=== PATIENT | male | born 1990 | race Two or more races ===

== ENCOUNTER 2024-02-11 08:01 | Outpatient (AMB) | payer OTHER, SELFPAY ==
--- OUTSIDE RECORDS SUMMARY | 2024-02-11 08:02 | XMS_ITS | Continuity of Care Document ---
Author Organization [facility] Address [address] [place] [address] Phone Care Team Providers Care Machine Maintenance Servicer Name Role Phone Katina Darnell Unavailable Unavailable Allergies, Adverse Reactions, Alerts Substance Reaction Status Criticality No Known Allergies Resolved No Inform ation Medications Medication Instructions Dosage Effective Dates (start - stop) Status Comments meloxicam 7.5 mg tablet take 1 tablet by oral route every day 7.5 MG - Active fluoxetine 20 mg tablet take 1 tablet by oral route every day in the morning 20 MG - Active Procedures Procedure Date OFFICE VISIT ESTAB PT 15 MIN OFFICE VISIT ESTAB PT 15 MIN Case Management OFFICE VISIT ESTAB PT 15 MIN OFFICE VISIT ESTAB PT 25 MIN Case Management Advance Directives Directive Yes / No Effective Date File Name No Information Encounters Encounter Description Practice Location Reason(s) For Visit Diagnoses Date Provider Providers Copied on Encounter [facility], [address], [id number] , tel:[phone] [facility] No Information [address] Mann Katina. [address], [place], [id number], [place]. tel:[phone] OFFICE VISIT ESTAB PT 15 MIN [facility], [address] [place], [id number] , tel:[phone] [facility] left LBP (chief complaint) Body mass index (BMI) 39.0-39.9, adultAcute low back pain, unspecified back pain laterality, with sciatica presence unspecified [address]ina. [address], [place], [address], [place]. tel: [phone] OFFICE VISIT ESTAB PT 15 MIN [facility], [address] [place], [place], [id number] , [place] tel:[phone] [facility] low back pain (chief complaint) Body mass index (BMI) 38.0-38.9, adultChronic low back pain with sciatica, sciatica laterality unspecified, unspecified back pain laterality [address]ina[address], [place], [id number], [place]. tel:[phone] [facility], [address], [id number] , [place] tel:[phone] [facility] Persons encountering health services in oth circumstances 8 Iron[address] Falcon. [address], [place], [id number], [place]. tel:[phone] OFFICE VISIT ESTAB PT 15 MIN [facility], [address] [place], [place], [id number] , [place] tel:[phone] [facility] back pain (chief complaint) Body mass index (BMI) 39.0-39.9, adultAcute low back pain, unspecified back pain laterality, with sciatica presence unspecified [address], [place], [id number], [place]. tel:[phone] OFFICE VISIT ESTAB PT 25 MIN [facility], [address] [place], [place], [address] , [place] tel:[phone] [facility] establish care (chief complaint) depression (chief complaint) memory loss (chief complaint) Body mass index (BMI) 39.0-39.9, adultEncounter for screening for other disorderAcute low back pain, unspecified back pain laterality, with sciatica presence unspecifiedDysthy miaMemory loss 8 [address]ina. [address], [place], [id number], [place]. tel:[phone] [facility], [address], [place], [place], [id number] , tel: [phone] [facility] No Information 8 Management Case. . Family History Family Member Type Diagnosis Age At Onset No Information Payers Payer name Insurance type Covered republican ID Yadira garland(s) [facility] Access CI [id number] Social History Type Description Quantity Date Captured Comments Alcohol Use Details Unknown Caffeine Use Details Unknown Tobacco Use Status No Information Smoking Status No Information Sex Male Chief Complaint And Reason For Visit No Information Reason For Referral Reason For Referral No Information Plan Of Treatment Date Type Action Status Goal H&P. Due on due Goal Td vaccine. Due on due Goal HIV screen. Due on due Goal Influenza vaccine. Due on due Goal Depression screening. Due on due Goal Tdap. Due on due Goal HIV screen. Due on due Goal Td vaccine. Due on due Goal H&P. Due on due Goal Tdap. Due on due Goal Influenza [...] Goal Influenza vaccine. Due on due Goal Td vaccine. Due on due Goal Tdap. Due on due Goal Dietary management education [...] wants handicap placard application completed. back pain (comments) pain radiat es down Rt leg. back pain Duration: 2 Year s. The [...] pain. says [place] is being seen in [place] & it is [place] long drive. Currently getting back injections which he thinks is helping. Affects movement sleep, lifestyle. depression There is no cont inuation of [...] tried counseling but it did not help. establish care The symptoms are reported as being mild. The symptoms occur constantly. He states the symptoms are chronic. says he moved here from [place] about 5 mos ago. LBP has had this for 3 years. says he hurt it at his job. Also had sx & this did not help him. goes to [facility] . Taking advil & tylenol right now. memory loss Severity level i s moderate. Pertinent negatives include agitation. Additional information: Pt reports memory loss which has been progressive X 1-2 years. Marianna has had depression at the time so he has not been clear when sx's started. 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 Pt advised he needs to do regular stretches, move. Massage for now, mobic 7.5mg bid. Will f/u w/ortho, pt will be referred to alternate ortho in [place] as W/C case is in [place]. Revisit in 6 weeks. Related to Acute low back pain, unspecified back pain laterality, with sciatica presence unspecified Giving encouragement to exercise Related to Body mass index (BMI) 39.0-39.9, adult Dietary management e ducation, guidance, and counseling [...] sciatica laterality unspecified, unspecified back pain laterality Giving encouragement to exercise Related to Body mass index (BMI) 38.0-38.9, adult Dietary management e ducation, guidance, and counseling Related to Body mass index (BMI) 38.0-38.9, adult Pt will sign a relea se for all past recordss today- wants to transfer his care/tx to [place] as it will be much more convenient. Will revisit in 1 month. Related to Acute low back pain, unspecified back pain laterality, with sciatica presence unspecified Giving encouragement to exercise Related to Body mass index (BMI) 39.0-39.9, adult Dietary management e ducation, guidance, and counseling Related to Body mass index (BMI) 39.0-39.9, adult Pt continues to f/u w/doctor in [place]- pt signing release for past records today. Related to Acute low back pain, unspecified back pain laterality, with sciatica presence unspecified I will refer to neuro for evalua tion Related to Memory loss Try prozac 20mg jada y #30-1R. pt defres counseling. revisit in 4 weeks. Related to Dysthymia Giving encouragement to exercise Related to Body mass index (BMI) 39.0-39.9, adult Dietary management e ducation, guidance, and counseling Related to Body mass index (BMI) 39.0-39.9, adult Mental health care education Rel ated to Encounter for screening for other disorder Assessments Type Assessment Date No Information Patient Care Teams Name Effective Dates (start - stop) Status Members No Information
--- NOTE | 2024-02-11 10:21 | MHC.OFFVISWM ---
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 BMI 46.1 Barley Steeper Required: Yes Barley Steeper Services: Barley Steeper Present Information Interpreted: clinical only Allergies No Known Allergies Allergy (Verified 02/11/24 13:02) Medication List - Last Reconciled 02/11/24 by Reg Murcia MD lisinopril 2.5 mg PO DAILY naproxen 500 mg PO BID phentermine 37.5 mg PO QAM semaglutide (weight loss) (Wegovy) mg subcut HPI HPI 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 BMI 46.1: Details: Start time: 1pm, End time: 1.38pm and 15 min to review his records ?I spent 33 minutes speaking with the patient on the phone plus an additional 20 minutes reviewing and updating records for a total of 53 minutes HPI Comments Details: Previous weight loss efforts Wakes up: 3am, Sleeps: 10pm Breakfast: skips Lunch: 12pm (tacos) Dinner: 7pm (beans and tortillas, eggs) Snacks: none Exercise: Has Elliptical Fluids: Coffee: 1 cup/day (cream and sugar), tea: none, soda: regular Pepsi (1 can per day), juice: no, ETOH: none PFSH Medical History (Updated 02/11/24 @ 10:23 by Reg Murcia MD) DJD (degenerative joint disease) Hypertension Morbid obesity Surgical History History of back surgery Family History (Updated 01/25/24 @ 09:29 by Cinthya Lopez CMA) Mother Cancer Father Heart problem Kidney problem Daughter No problems noted. Daughter No problems noted. Daughter No problems noted. Social History (Updated 01/25/24 @ 09:29 by Cinthya Lopez CMA) Alcohol intake: never Patient Tobacco Use Status: Never used Tobacco Physical Exam Vital Signs: BMI result Body Mass Index 46.0 Telehealth Telehealth Telehealth Platform: Telephone Location of provider rendering services: practice address Location of patient: address on file Patient Identification confirmed using: Name, : Yes Telehealth method: voice only Patient verbally consented to treatment: Yes Patient verbally consented to billing insurance company: Yes Patient informed of any privacy concerns related to visit: Yes Minutes spent on Phone/Video with Pt.: 53 Assessment & Plan Assessment & Plan (1) Morbid obesity: Code(s): E66.01 - Morbid (severe) obesity due to excess calories Category: Medical Plan: 1.?Plan for lap sleeve gastrectomy. If diaphragmatic or ventral hernias are present at time of surgery, these will be repaired laparoscopically as well. Risks and complications include possible conversion to an open procedure, anastomotic leak, bleeding requiring transfusion, small bowel obstruction, , DVT and pulmonary embolism, cardiac, or pulmonary complications, as shelter complications such as anastomotic ulcer, insufficient weight loss and vitamin deficiencies. I emphasized the importance of close follow-up, adherence to instructions and good communication. 2. Please buy a body composition scale and start sharing measurements with me 3. Do aerobic exercise (outside walking, or treadmill, or elliptical or stationary bike) and do 150 minutes of aerobic exercise per week, or 22 minutes per day. 4. Continue the Wegovy and the Phentermine when you get your body composition scale once a week. Use a calorie-counting jacobo to track your daily calories to create a calorie deficit with a target of consuming 9483-8647 calories per day. We discussed the potential side effects of Wegovy such as nausea, vomiting, abdominal pain, diarrhea and constipation and you will need to contact me if any of these symptoms occur or for any other new symptom you may experience ?5. Goal is to lose at least 1.5-2lbs per week ?6. Goal to lose 10% of your weight before surgery, which is about 29lbs. Ultimate weight goal: 265lbs before surgery Orders: Orders H Pylori Breath Test Today E66.01 - Morbid (severe) obesity due to excess calories Zinc Today E66.01 - Morbid (severe) obesity due to excess calories C Reactive Protein Today E66.01 - Morbid (severe) obesity due to excess calories Vitamin A Today E66.01 - Morbid (severe) obesity due to excess calories Vitamin D 25-OH Total Today E66.01 - Morbid (severe) obesity due to excess calories US abdomen comp w elastography Today E66.01 - Morbid (severe) obesity due to excess calories XR chest 2V Today E66.01 - Morbid (severe) obesity due to excess calories ECG 12 lead EKG Today E66.01 - Morbid (severe) obesity due to excess calories Insulin Today E66.01 - Morbid (severe) obesity due to excess calories Hemoglobin A1c Today E66.01 - Morbid (severe) obesity due to excess calories Complete Blood Count Auto Diff Today E66.01 - Morbid (severe) obesity due to excess calories Lipid Panel Today E66.01 - Morbid (severe) obesity due to excess calories IRON PROFILE Today E66.01 - Morbid (severe) obesity due to excess calories Comprehensive Met. Panel Today E66.01 - Morbid (severe) obesity due to excess calories Vitamin B12 and Folate Today E66.01 - Morbid (severe) obesity due to excess calories Vitamin B1 Today E66.01 - Morbid (severe) obesity due to excess calories TSH reflex Free T4 Today E66.01 - Morbid (severe) obesity due to excess calories Ferritin Today E66.01 - Morbid (severe) obesity due to excess calories FL upper GI w air Today E66.01 - Morbid (severe) obesity due to excess calories Referrals Nutrition/Dietitian Referral E66.01 - Morbid (severe) obesity due to excess calories Behavioral Health Referral E66.01 - Morbid (severe) obesity due to excess calories
[2024-02-11 10:22] VITALS: BMI 46.0
== END 2024-02-11 13:39 | disposition home or self-care (01) ==
LOC: HO.HBS 08:01
PROVIDERS: Visit Provider Surgery
DX: E66.813 Obesity, class 3 (principal); Z68.42 Body mass index [BMI] 45.0-49.9, adult
CPT/HCPCS: 99443

== ENCOUNTER → 2024-02-11 08:01 | Outpatient (BNVA) | payer OTHER, SELFPAY | PROVIDERS: Visit Provider Surgery ==

== ENCOUNTER 2024-03-07 09:13 | Outpatient (REF) | payer OTHER, SELFPAY ==
--- NOTE | ~2024-03-07 | US_ITS ---
EXAMINATION: US ABDOMEN COMPLETE WITH LIVER ELASTOGRAPHY HISTORY: E66.01 - Morbid (severe) obesity due to excess calories TECHNIQUE: Real-time grayscale ultrasound imaging of the abdomen was performed and images were reviewed. COMPARISON: There are no prior studies for comparison. FINDINGS: Liver: The liver is normal in size, but demonstrates increased echotexture, consistent with steatosis. No focal mass or intrahepatic biliary ductal dilatation is identified. There is normal hepatopedal flow in the portal vein. Ultrasound elastography of the liver was performed with 10 separate measurements of the liver parenchyma with the patient in the supine position. Measurements were obtained approximately 2 cm below Jana's capsule and perpendicular to the capsule. Images are of satisfactory quality. The median shear wave velocity is 1.23 m/s. The interquartile range/median (IQR/median) is 0.29. Gallbladder and biliary tree: The gallbladder is unremarkable, without evidence of calculi, wall thickening, or pericholecystic fluid. There is no sonographic Dickerson sign. The common bile duct is normal in caliber measuring 4 mm. Kidneys: The right kidney measures 12.5 cm in length. The left kidney measures 13.2 cm in length. There is mild hydronephrosis. No mass or calculi are identified. Pancreas: The pancreatic head, neck, and body are unremarkable. The pancreatic tail is obscured by bowel gas. Spleen: The spleen is normal in size and contour, measuring 10.3 cm in length. Abdominal aorta and inferior vena cava: The visualized portions of the abdominal aorta and inferior vena cava are normal in caliber. There is no free fluid in the abdomen. US/US abdomen comp w elastography IMPRESSION: 1. Hepatic steatosis. The median shear wave velocity is 1.23 m/s, corresponding to a median liver stiffness of 4.6 kPa. The IQR/median value is 0.23. This is unreliable as the value is > 0.15 (15%). Findings are indicative of a normal elastography value with a low likelihood of severe fibrosis or cirrhosis. 2. Mild bilateral hydronephrosis of uncertain significance. Follow-up is suggested. REFERENCE: Society of Radiologists in Ultrasound Liver Stiffness Thresholds (2019): LIVER STIFFNESS THRESHOLDS: *Shear wave velocity less than 1.3 m/s (Liver Stiffness equal or less than 5 kPa): High probability of being normal. *Shear wave velocity less than 1.7 m/s (Liver Stiffness less than 9 kPa): In the absence of other known clinical signs, rules out compensated advanced chronic liver disease. *Shear wave velocity between 1.7-2.1 m/s (Liver Stiffness 9-13 kPa): Suggestive of compensated advanced chronic liver disease but need further test for confirmation. *Shear wave velocity between 2.1-2.4 m/s (Liver Stiffness 13-17 kPa): Rules in compensated advanced chronic liver disease. *Shear wave velocity greater than 2.4 m/s (Liver Stiffness over 17 kPa): Suggestive of clinically significant portal hypertension. QUALITY OF DATA SET: *IQR/Median value equal or less than 0.15 implies a quality data set. *IQR/Median value over 0.15 implies a poor quality data set. SIGNIFICANT CHANGE FROM PRIOR EXAM: Significant change if liver stiffness measurement is 10% or greater from prior exam. OTHER CONSIDERATIONS: The stage of liver fibrosis may be overestimated in the setting of acute hepatitis, liver inflammation, elevated liver function tests, hepatic vascular congestion, obstructive cholestasis, non-fasting state, and infiltrative diseases such as amyloidosis and lymphoma. In some patients with NAFLD, the liver stiffness thresholds for compensated advanced chronic liver disease may be lower. In causes other than viral hepatitis and NAFLD, liver stiffness thresholds are not well established. Electronically signed by: James Serna MD 03/09/2024 08:29 AM [facility]
--- OUTSIDE RECORDS SUMMARY | 2024-03-07 09:30 | XMS_ITS | Continuity of Care Document ---
Author Organization [facility] Address [address] [place] [address] Phone Care Team Providers Care Plant Custodian Name Role Phone Katina Darnell Unavailable Unavailable [...] Providers Copied on Encounter [facility], [address] [place], [id number] , tel:[phone] [place] [employer] No Information 8 Mann Katina. [address] [place], [place], [id number], [place]. tel:[phone] OFFICE VISIT ESTAB PT 15 MIN [facility], [address] [place], [id number] , tel:[phone] [employer] left LBP (chief complaint) Body mass index (BMI) 39.0-39.9, adultAcute low back pain, unspecified back pain laterality, with sciatica presence unspecified 8 Mann Katina. [address] [place], [place], [id number], [place]. tel:[phone] OFFICE VISIT ESTAB PT 15 MIN [facility], [address] [place], [place], [address] , [place] tel:[phone] [facility] low back pain (chief complaint) Body mass index (BMI) 38.0-38.9, adultChronic low back pain with sciatica, sciatica laterality unspecified, unspecified back pain laterality 8 Mann Ktaina. [address] [place], [place], [id number], [place]. tel:[phone] [facility], [address] [place], [address] , [place] tel:[phone] [facility] Persons encountering health services in oth circumstances 8 Ironadilia Falcon. [address] [place], [place], [address], [place]. tel:[phone] OFFICE VISIT ESTAB PT 15 MIN [facility], [address] [place], [place], [id number] , [place] tel:+ [phone] [facility] back pain (chief complaint) Body mass index (BMI) 39.0-39.9, adultAcute low back pain, unspecified back pain laterality, with sciatica presence unspecified 8 Mann Katina. [address] [place], [place], [address], [place]. tel:[phone] OFFICE VISIT ESTAB PT 25 MIN [facility], [address] [place], [place], [address] , [place] tel:+ [phone] [facility] establish care (chief complaint) depression (chief complaint) memory loss (chief complaint) Body mass index (BMI) 39.0-39.9, adultEncounter for screening for other disorderAcute low back pain, unspecified back pain laterality, with sciatica presence unspecifiedDysthy miaMemory loss 8 Mann Katina. [address], [place], [id number], [place]. tel:[phone] [facility], [address], [place], [place], [id number] , tel: [phone] [facility] No Information 8 Management Case. . Family History Family Member Type Diagnosis Age At Onset No Information Payers Payer name Insurance type Covered republican ID Yadira garland(s) [facility] Access CI [id number] Social History Type Description Quantity Date Captured [...] pain. says he is being seen in [place] & it is a long drive. Currently getting back injections which he thinks is helping. Affects movement sleep, lifestyle. memory loss Severity level i s moderate. Pertinent negatives include agitation. Additional information: Pt reports memory loss which has been progressive X 1-2 years. Marianna has had depression at the time so he has not been clear when sx's started. establish care The symptoms are reported as being mild. The symptoms occur constantly. He states the symptoms are chronic. says he moved here from [place] about 5 mos ago. LBP has had this for 3 years. says he hurt it at his job. Also had sx & this did not help him. goes to [facility] . Taking advil & tylenol right [...] tried counseling but it did not help. 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 Pt advised he needs to do regular stretches, move. Massage for now, mobic 7.5mg bid. Will f/u w/ortho, pt will be referred to alternate ortho in [place] as W[place]C case is in [place]. Revisit in 6 weeks. Related to Acute [...] today- wants to transfer his care/tx to [place] as it will be much more convenient. Will revisit in 1 month. Related to Acute low back pain, unspecified back pain laterality, with sciatica presence unspecified Dietary management e ducation, guidance, and counseling Related to Body mass index (BMI) 39.0-39.9, adult Giving encouragement to exercise Related to Body mass index (BMI) 39.0-39.9, adult Pt continues to f/u w/doctor in [place]- pt signing release for past records today. [...]
== END 2024-03-07 09:14 | disposition home or self-care (01) ==
LOC: HO.US 09:13
PROVIDERS: Visit Provider Surgery
DX: E66.01 Morbid (severe) obesity due to excess calories (principal)
CPT/HCPCS: 76700; 76981

== ENCOUNTER → 2024-03-07 09:16 | Outpatient (BNV) | payer OTHER, SELFPAY | PROVIDERS: Visit Provider Radiology Diagnostic Radiology | DX: K76.0 Fatty (change of) liver, not elsewhere classified (principal) | CPT/HCPCS: 76700 ==

== ENCOUNTER 2024-03-14 10:21 | Outpatient (REF) | payer OTHER, SELFPAY ==
--- NOTE | ~2024-03-14 | XR_ITS ---
CLINICAL HISTORY: E66.01 - Morbid (severe) obesity due to excess calories 2 view chest x-ray Comparison: None Findings: No consolidation or effusion. Heart size is normal. No acute fracture. IMPRESSION: 1. No acute findings. This document has been electronically signed by: Jmaes Meadows MD on 03/15/2024 04:43:47
--- NOTE | 2024-03-14 10:31 | ECG_ITS ---
Test Reason : OBS Blood Pressure : */* mmHG Vent. Rate : 72 BPM Atrial Rate : 72 BPM P-R Int : 160 ms QRS Dur : 92 ms QT Int : 398 ms P-R-T Axes : 53 11 16 degrees QTcB Int : 435 ms Normal sinus rhythm Inferior infarct , age undetermined Abnormal ECG No previous ECGs available Referred By: Reg Murcia Electronically Signed By: Marcelino Lerma
[2024-03-14 10:48] LABS: MANUAL DIFF FLAG NO
[2024-03-14 10:51] LABS: Basophils Absolute Auto 0.1 X10*3/uL (0.0-0.2); Basophils Percent Auto 0.8 % (0-2); Eosinophils Absolute Auto 0.2 X10*3/uL (0.0-0.4); Hematocrit 51.5 % (42.0-52.0); Hemoglobin 17.5 g/dl (14.0-18.0); Imm Gran Abs Auto 0.04 X10*3/uL (0.00-0.03); Imm Gran Pct Auto 0.4 % (0.0-0.4); Lymphocytes Absolute Auto 2.8 X10*3/uL (1.2-4.9); Lymphocytes Percent Auto 30.9 % (20-40); Mean Corpuscular Hemoglobin 29.1 pg (27.0-33.0); Mean Corpuscular Volume 85.7 fL (80.0-98.0); Mean Platelet Volume 9.2 fL (9.4-12.4); Monocytes Absolute Auto 0.8 X10*3/uL (0.1-1.2); Monocytes Percent Auto 8.9 % (2-11); Neutrophils Absolute Auto 5.1 x10*3/uL (2.0-8.3); Platelet Count 296 X10*3/uL (160-400); Red Blood Count 6.01 X10*6/uL (4.60-5.80); Red Cell Distribution Width 13.2 % (11.0-16.0)
[2024-03-14 11:15] LABS: Estimated Average Glucose 123 mg/dL; Hemoglobin A1C 179.9912 umol/L; Hemoglobin A1c % 5.9 % (<6.0)
[2024-03-14 11:33] LABS: Alanine Aminotransferase 93 U/L (0-40); Alkaline Phosphatase 78 U/L (39-117); Anion Gap 6 (12-20); Aspartate Amino Transferase 44 U/L (5-37); Bilirubin Total 0.3 mg/dL (0.0-1.0); Blood Urea Nitrogen 12 mg/dL (9-16); C Reactive Protein 0.25 mg/dL (< or = 0.50); Calcium 9.4 mg/dL (8.4-10.2); Carbon Dioxide 33 mmol/L (22-29); Chloride 107 mmol/L (96-108); Cholesterol 142 mg/dL (<200); Estimated Glomerular Filt Rate > 60; Glucose Random 88 mg/dL (60-115); HDL Cholesterol 44 mg/dL (>40); LDL Cholesterol Calculated 85 mg/dL (<100); Potassium 4.3 mmol/L (3.3-5.1); Sodium 142 mmol/L (135-145); Total Protein 7.4 g/dL (6.5-8.0); Triglycerides 69 mg/dL (<150); Unsaturated Iron Binding 226 ug/dL
[2024-03-14 11:42] LABS: Iron 82 mcg/dL (45-160); Percent Iron Saturation 27 % (15-50); Total Iron Binding Capacity 308 mcg/dL (228-428)
[2024-03-14 11:54] LABS: Ferritin 214 ng/mL (20-250); TSH reflex Free T4 1.75 uIU/mL (0.32-4.0)
[2024-03-14 11:55] LABS: Insulin 53 uU/mL (2-29)
[2024-03-14 11:58] LABS: Folate 7.4 ng/mL (> or = 4.0); Vitamin B12 464 pg/mL (200-900)
--- OUTSIDE RECORDS SUMMARY | 2024-03-14 12:03 | XMS_ITS | Continuity of Care Document ---
Author Organization [facility] Address [address] [place] [address] Phone Care Team Providers Care Application Processor Name Role Phone Katina Darnell Unavailable Unavailable [...] Providers Copied on Encounter [facility], [address], [place], [id number] , tel:[phone] [place] [employer] No Information 8 Mann Katina. [address] [place], [place], [id number], [place]. tel:[phone] OFFICE VISIT ESTAB PT 15 MIN [facility], [address], [place], [address] , tel:[phone] [employer] left LBP (chief complaint) Body mass index (BMI) 39.0-39.9, adultAcute low back pain, unspecified back pain laterality, with sciatica presence unspecified 8 Mann Katina. [address] [place], [place], [address], [place]. tel:[phone] OFFICE VISIT ESTAB PT 15 MIN [facility], [address] [place], [place], [id number] , [place] tel:[phone] [facility] low back pain (chief complaint) Body mass index (BMI) 38.0-38.9, adultChronic low back pain with sciatica, sciatica laterality unspecified, unspecified back pain laterality 8 Mann Katina. [address] [place], [place], [id number], [place]. tel:[phone] [facility], [address], [address] , [place] tel:+ [phone] [facility] Persons encountering health services in oth circumstances 8 Ironadilia Falcon. [address] [place], [place], [address], [place]. tel:[phone] OFFICE VISIT ESTAB PT 15 MIN [facility], [address] [place], [place], [address] , [place] tel:[phone] [facility] back pain (chief complaint) Body mass index (BMI) 39.0-39.9, adultAcute low back pain, unspecified back pain laterality, with sciatica presence unspecified 8 Mann Katina. [address] [place], [place], [address], [place]. tel:[phone] OFFICE VISIT ESTAB PT 25 MIN [facility], [address] [place], [place], [address] , [place] tel:+ [phone] [facility] establish care (chief complaint) depression (chief complaint) memory loss (chief complaint) Body mass index (BMI) 39.0-39.9, adultEncounter for screening for other disorderAcute low back pain, unspecified back pain laterality, with sciatica presence unspecifiedDysthy miaMemory loss 8 Mann Katina. [address] [place], [place], [address], [place]. tel:[phone] [facility], [address], [place], [place], [address] , tel: [phone] [facility] No Information 8 Management Case. . Family History Family Member Type Diagnosis Age At Onset No Information Payers Payer name Insurance type Covered constitution party ID Yadira garland(s) [facility] Access CI [id number] Social History Type Description Quantity Date Captured [...] pain. says he is being seen in [place] & it is a long drive. Currently [...] this did not help him. goes to [facility] . Taking advil & tylenol right [...] today- wants to transfer his care/tx to [place] as it will be much more convenient. Will revisit in 1 month. Related to Acute low back pain, unspecified back pain laterality, with sciatica presence unspecified Dietary management e ducation, guidance, and counseling Related to Body mass index (BMI) 39.0-39.9, adult Giving encouragement to exercise Related to Body mass index (BMI) 39.0-39.9, adult Pt continues to f/u w/doctor in [place]- pt signing release for past records today. [...]
[2024-03-17 12:59] LABS: Zinc 64 mcg/dL (60-130)
[2024-03-18 02:54] LABS: Vitamin A 36 mcg/dL (38-98)
[2024-03-18 12:48] LABS: Vitamin B1 8 nmol/L (8-30)
== END 2024-03-14 10:22 | disposition home or self-care (01) ==
LOC: HO.LAB 10:21
PROVIDERS: PCP Internal Medicine; Visit Provider Surgery
DX: E66.01 Morbid (severe) obesity due to excess calories (principal); Z13.1 Encounter for screening for diabetes mellitus
CPT/HCPCS: 36415; 71046; 80053; 80061; 82306; 82607; 82728; 82746; 83036; 83525; 83540; 84425; 84443; 84590; 84630; 85025; 86140; 93005

== ENCOUNTER → 2024-03-14 10:31 | Outpatient (BNV) | payer OTHER, SELFPAY | PROVIDERS: PCP Internal Medicine; Visit Provider Internal Medicine Cardiovascular Disease | DX: R94.31 Abnormal electrocardiogram [ECG] [EKG] (principal) | CPT/HCPCS: 93010 ==

== ENCOUNTER → 2024-03-14 10:53 | Outpatient (BNV) | payer OTHER, SELFPAY | PROVIDERS: PCP Internal Medicine; Visit Provider Radiology Diagnostic Radiology | DX: E66.01 Morbid (severe) obesity due to excess calories (principal) | CPT/HCPCS: 71046 ==

== ENCOUNTER 2024-03-15 11:10 | Outpatient (AMB) | payer OTHER, SELFPAY ==
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
== END 2024-03-15 13:51 | disposition home or self-care (01) ==
LOC: HO.HBST 11:10
PROVIDERS: PCP Internal Medicine; Visit Provider Counselor Mental Health
DX: F43.22 Adjustment disorder with anxiety (principal)
CPT/HCPCS: 90837

== ENCOUNTER 2024-04-05 11:14 | Outpatient (AMB) | payer OTHER, SELFPAY ==
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
== END 2024-04-05 11:28 | disposition home or self-care (01) ==
LOC: HO.HBST 11:14
PROVIDERS: PCP Internal Medicine; Visit Provider Counselor Mental Health
DX: F43.22 Adjustment disorder with anxiety (principal)
CPT/HCPCS: 90837

== ENCOUNTER → 2024-04-11 08:09 | Outpatient (REF) | payer OTHER, SELFPAY | LOC: HO.CARD 08:09 | PROVIDERS: PCP Internal Medicine; Visit Provider Surgery | DX: R94.31 Abnormal electrocardiogram [ECG] [EKG] (principal) | CPT/HCPCS: 93017; 93306; Q9957 ==

== ENCOUNTER → 2024-04-11 08:12 | Outpatient (BNV) | payer OTHER, SELFPAY | PROVIDERS: PCP Internal Medicine | DX: R94.31 Abnormal electrocardiogram [ECG] [EKG] (principal); R06.02 Shortness of breath | CPT/HCPCS: 93016; 93018; 93320; 93325; 93350; 93352 ==

== ENCOUNTER → 2024-04-24 09:22 | Outpatient (AMB) | payer OTHER, SELFPAY ==
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
--- OUTSIDE RECORDS SUMMARY | 2024-04-24 10:02 | XMS_ITS | Continuity of Care Document ---
Author Organization [facility] Address [address] [place] [address] Phone Care Team Providers Care Pipe Turner Name Role Phone Katina Darnell Unavailable Unavailable [...] Providers Copied on Encounter [facility], [address], [place], [id number] , tel:[phone] [facility] [email or web address] No Information 8 Mann Katina. [address] [place], [place], [id number], [place]. tel:[phone] OFFICE VISIT ESTAB PT 15 MIN [facility], [address], [place], [id number] , tel:[phone] [employer] left LBP (chief complaint) Body mass index (BMI) 39.0-39.9, adultAcute low back pain, unspecified back pain laterality, with sciatica presence unspecified 8 Mann Katina. [address] [place], [place], [id number], [place]. tel:[phone] OFFICE VISIT ESTAB PT 15 MIN [facility], [address] [place], [place], [id number] , [place] tel:+ [phone] [facility] low back pain (chief complaint) Body mass index (BMI) 38.0-38.9, adultChronic low back pain with sciatica, sciatica laterality unspecified, unspecified back pain laterality 8 Mann Katina. [address] [place], [place], [id number], [place]. tel:[phone] [facility], [address], [id number] , [place] tel:+ [phone] [facility] Persons encountering health services in oth circumstances 8 Ironadilia Falcon. [address] [place], [place], [id number], [place]. tel:[phone] OFFICE VISIT ESTAB PT 15 MIN [facility], [address] [place], [place], [id number] , [place] tel:+ [phone] [facility] back pain (chief complaint) Body mass index (BMI) 39.0-39.9, adultAcute low back pain, unspecified back pain laterality, with sciatica presence unspecified 8 Mann Katina. [address] [place], [place], [id number], [place]. tel:[phone] OFFICE VISIT ESTAB PT 25 MIN [facility], [address] [place], [place], [id number] , [place] tel:+ [phone] [facility] establish care (chief complaint) depression (chief complaint) memory loss (chief complaint) Body mass index (BMI) 39.0-39.9, adultEncounter for screening for other disorderAcute low back pain, unspecified back pain laterality, with sciatica presence unspecifiedDysthy miaMemory loss 8 Mann Katina. [address] [place], [place], [id number], [place]. tel:[phone] [facility], [address], [place], [place], [id number] , tel: [phone] [facility] No Information 8 Management Case. . Family History Family Member Type Diagnosis Age At Onset No Information Payers Payer name Insurance type Covered green party ID Yadira garland(s) [facility] Access CI [id number] Social History Type Description Quantity Date Captured [...] pain. says he is being seen in [place] & it is a long drive. Currently [...] are chronic. says he moved here from [place] about 5 mos ago. LBP has had this for 3 years. says he hurt it at his job. Also had sx & this did not help him. goes [facility] . Taking advil & tylenol [...] will be referred to alternate ortho in [place] as W[place] case is in [place]. Revisit in 6 weeks. Related to Acute [...] today- wants to transfer his care/tx to [place] as it will be much more convenient. Will revisit in 1 month. Related to Acute low back pain, unspecified back pain laterality, with sciatica presence unspecified Dietary management e ducation, guidance, and counseling Related to Body mass index (BMI) 39.0-39.9, adult Giving encouragement to exercise Related to Body mass index (BMI) 39.0-39.9, adult Pt continues to f/u w/doctor in [place]- pt signing release for past records today. [...]
--- OUTSIDE RECORDS SUMMARY | 2024-04-24 10:02 | XMS_ITS | Clinical Summary ---
Author Organization [facility] [email or web address] Address [address] [place] [address] Care Team Providers Care Material Crew Supervisor Name Role Phone Unavailable Primary Care Provider Unavailabl e Social History Tobacco Use Types Packs/Day Years Used Date Smoking Tobacco: Never Assessed Sex and Gender Information Value Date Recorded Sex Assigned at Not on file Legal Sex Male 6:51 PM EDT Gender Identity Not on file Sexual Orientation Not on file Last Filed Vital Signs Vital Sign Reading Time Taken Comments Blood Pressure - - Pulse 86 11/07/2020 11:26 AM EDT Temperature 36.7 ??C (98 ??F) 11/07/2020 11:26 AM EDT Respiratory Rate - - Oxygen Saturation 97% 11/07/2020 11:26 AM EDT Inhaled Oxygen Concentration - - Weight - - Height - - Body Mass Index - - Plan of Treatment Health Maintenance Due Date Last Done Comments Depression: Screening Annual ly using PHQ-2/9 in Adults 18 yrs or above (or HM Modifier)([facility]) 2006 Hepatitis C Virus Infection in Adolescents and Adults: Screening (or Modifier) ([facility]) 2006 [facility] Screening Reminder: Jeny rodriguez for all adults ([facility]) 2006 Tobacco Smoking Cessation: i n Adults excluding Women: Behavioral and Pharmacotherapy Interventions ([facility]) 2006 Lipid Screening: Once for Me n aged 20 to 35 yrs ([facility]) 2008 Flu Vaccination: Yearly for ages 18mos through 64 years (or Modifier)([facility]) 09/30/2023 COVID-19 Vaccine Screening: Initial Series and Booster Status ([facility]) (2023- season) 2023 Lipid Screening: Every 5 yrs for Men aged 35+ (or HM Modifier) ([facility]) 2024 DTaP/Tdap/Td Vaccines ([facility]) (2 - Td or Tdap) 12/10/2024 12/10/2014 Zoster/Shingles Vaccine Seri es Screening: Adults aged 18+ yrs (or HM Modifiers)([facility]) (1 of 2) 2038 Pneumococcal Vaccination Scr eening: Pts 0-19 & 19-64 yrs of age ([facility] ) Aged Out No longer eligible b ased on patient's age to complete this topic Medical Devices Not on file Insurance MEDICARE
--- OUTSIDE RECORDS SUMMARY | 2024-04-24 10:02 | XMS_ITS | Data Portability ---
Author Organization [employer] Address [address] [place] [address] Care Team Providers Care Realtime Captioner Name Role Phone HIM [facility] OTHER Assessment Encounter Date Assessment Date Assessment LastModified by Organization Details LastModified Time 01/07/2024 01/07/2024 I provided real -time medical direction via phone for this encounter and was available for additional phone-based assistance as needed. I have reviewed and agree with the Assessment and Plan as documented by the Wastewater Treatment Supervisor. Patient given the opportunity to ask questions. Our service contacted for an assessment of: Hemoptysis and chest pain As per above, patient with a 3 to four-week history of hemoptysis and a more recent complaint of chest pain. Patient with frequent travel to [place]. Currently is homeless. He is awaiting for a property that he has to clear renters before moving in. He does have 3 children who are with him currently in the back of his car. The visit took place at a [facility]. The patient did not call for the visit and did not want multiple cut off saw operator to evaluate him. He states that approximately 3 weeks ago he was seen in urgent care and had a chest x-ray which was negative. He declines and denies being tested for TB. He states he has had no workup other than for a high cholesterol reading in the past month or so. Patient denies shortness of breath and dyspnea on exertion. Per multiple cut off saw operator on the scene, vital signs show hypertension and is otherwise in no distress. He declines emergency room visit or evaluation. He will likely go and have TB testing at some other point in time. He denies any night sweats or chills. He is trying to lose weight and therefore any weight loss he is experiencing he deems to be intentional. Impression: Hemoptysis and chest pain Plan: Differential diagnosis is broad and beyond the scope of this practice to evaluate in the current setting. We encouraged the patient to follow up in the emergency department however given factors of homelessness and currently having his 3 young daughters in the back seat of his car precludes him from obtaining optimal medical care. We did not call 911 for refusal given the patient factors involved. It is understandable why the patient would not want to go to the emergency department and the hemoptysis appears to be, per his description, not massive in quantity. Given his travel and homeless status he is at risk for tuberculosis. He is also at risk for pulmonary emboli from his relatively sedentary state and obesity. He is not hypoxic and not tachycardic and therefore burden of thromboses would be small. He has no systemic signs of tuberculosis and denies a cough. We will need to follow-up with his care team regarding best treatment for Elier given his circumstances and patient factors. Patient is agreeing to a reasonable plan that will allow him to take care of his family. Allergies: Reviewed PCP f/u: We discussed the diagnostic uncertainty of home visits and the risk associated with this. In this case, the patient and I felt this to be an acceptable and reasonable amount of risk given the benefit of avoiding an ED visit. We discussed the need to seek care urgently/emergent ly in the setting of any new or worsening serious symptoms, particularly fever chills [email or web address] Not available 01/07/2024 21:02:28 Plan of Treatment Reminders Order Date Submit Date Provider Last Modified By Organization Details Last Modified Time Details Appointments None record ed. Lab None record ed. Referral None record ed. Procedures None record ed. Surgeries None record ed. Imaging None record ed. Medication Orders None record ed. Patient TargetsNo targets recorded. Patient InstructionsNo instructions recorded. Reason for Referral None Reported. Medical Equipment None Reported. Allergies No known drug allergies Medications Name Sig Start Date Stop Date Status Note LastModified by Organization Details LastModified Time ketoconazole 2 % shampoo active Not Available Not Available Not Available fluconazole 200 mg tablet TAKE 1 TABLET BY MOUTH ONCE DAILY FOR 42 DAYS active Not Available Not Available No t Available cephalexin 500 mg capsule TAKE 1 CAPSULE BY MOUTH EVERY 8 HOURS FOR 7 DAYS active Not Available Not Available No t Available sertraline 25 mg tablet active Not Available Not Available No t Available mupirocin 2 % topical ointment APPLY OINTMENT TOPICALLY TWICE DAILY FOR 2 WEEKS active Not Available Not Available No t Available diazepam 10 mg tablet TAKE 1 TABLET BY MOUTH ONCE DAILY FOR 3 DAYS active Not Available Not Available No t Available lisinopril 2.5 mg tablet active Not Available Not Availabl e Not Available phentermine 37.5 mg capsule TAKE 1 CAPSULE BY MOUTH ONCE DAILY active Not Available Not Available No t Available naproxen 500 mg tablet active Not Available Not Available No t Available mometasone 0.1 % topical cream APPLY CREAM TOPICALLY TWICE DAILY FOR 2 WEEKS active Not Available Not Available No t Available Vitamin D3 25 mcg (1,000 unit) capsule active Not Available Not Availabl e Not Available cyclobenzapri ne 5 mg tablet TAKE 1 TABLET BY MOUTH THREE TIMES DAILY active Not Available Not Available No t Available Wegovy 0.25 mg/0.5 mL subcutaneous pen injector active Not Available Not Available Not Available Wegovy 0.5 mg/0.5 mL subcutaneous pen injector active Not Available Not Available Not Available Vitals Date Recorded Heart rate Oxygen saturation Oxygen saturation in Arterial blood by Pulse oximetry Respiratory rate Body weight Body height Body temperature Systolic blood pressure Diastolic blood pressure Provider Name and Address Organization Details Last Updated DateTime 4 89 /min 99 % 99 % 20 /min 570364. 6 g 170.18 cm 98.3 [degF] 184 mm[Hg] 136 mm[Hg] Not Available [facility] - production 4 16:43:51 Social History None recorded. Functional Status None recorded. Mental Status None recorded. Family History Nothing Reported. Medical History No medical history recorded. Past Encounters Encounter ID Performer Location Encounter Start Date Encounter Closed Date Diagnosis/Indication Diagnosis SNOMED-CT Code Diagnosis ICD10 Code Diagnosis Note [id number] Dari Horn MD [facility] [address] [place] [id number] 01/07/2024 16:42:20 01/07/2024 21:40:20 Hemoptysis 31749754 R04.2 Chest pain 04476423 R07. 9 Health Concerns Section Related Observation LastModified by Organization Detai ls LastModified Time None Recorded Concern Status LastModified by Organization Details LastModified Time None Recorded Advance Directives Directive None Recorded Payers Encounter Date Sequence Insurance Name Policy Number Policy Donaldson Covered Member ID Donaldson Member ID Guarantor Name 01/07/[address] [facility] [place] [place] - DOS ON OR AFTER 2022 - DUAL ELIGIBLE - SENIOR LIVING OPTIONS AND ONE CARE (MEDICARE REPLACEMENT/ADV ANTAGE - HMO) Elier Kelley [id number] Elier Kelley Notes Date Note Type Note Provider Name and Address Organization Details Recorded Time 01/07/2024 text/html HPI: PTSD, Lumbar Disc disorder, Migraines, BLE venous insufficiency, Learning Disability, Depression ................. ................. ................. ................. ................. ................. ................. ................. ..... [facility] Nurse Triage Notes (Marina Fletcher): Chief Complaints: Chest pain, Cough PMH: Post-Traumatic Stress Disorder (PTSD), Obesity, Hypertension, Depression Comments: HPI reviewed- NE ................. ................. ................. ................. ................. ................. ................. ................. ..... Wastewater Treatment Supervisor Note From Cornelia Espinosa: [facility] for the bloody cough and chest pain. O/A met pt at a [employer] [place]. Pt stated health insurance wanted him to be seen due to bloody cough he did not request it. Pt alert and oriented. Pt skin pink, warm, and dry. Pt denies light headedness, dizziness, vision changes and headache. Pt denies shortness of breath and lung sounds are clear. Pt states he has a chest pressure that he was seen for at urgent care. Pt heart sounds were normal. Pt abdomen was soft and non tender. Pt denies nausea, vomiting, and diarrhea. Pt states his input and output is normal. Pt lower extremities show no edema. [facility] consulted and the assessment was shared. Pt advised to be seen in the ER for a chest X-ray and TB test to rule out. Pt was agreeable but will go later. SC2 clears without incident. ................. ................. ................. ................. ................. ................. ................. ................. ..... [facility] Consulted: Dari Horn ................. ................. ................. ................. ................. ................. ................. ................. ..... Disposition: Bobby Horn MD [address] [facility], [place], [address], [employer] [facility] 01/07/2024 21:02:41
== END ==
LOC: HO.HBST 09:22
PROVIDERS: PCP Internal Medicine; Visit Provider Counselor Mental Health
DX: F43.22 Adjustment disorder with anxiety (principal)
CPT/HCPCS: 90837

== ENCOUNTER 2024-05-16 12:24 | Outpatient (AMB) | payer OTHER, SELFPAY ==
--- NOTE | 2024-05-16 12:09 | A.OFFWM_ITS ---
Intake Intake Visit Reasons: TV BH F/U Allergies No Known Allergies Allergy (Verified 02/11/24 13:02) [facility] Medical History (Updated 05/10/24 @ 17:11 by Reg Murcia MD) DJD (degenerative joint disease) Hypertension Morbid obesity Surgical History History of back surgery Family History (Updated 01/25/24 @ 09:29 by Cinthya Lopez CMA) Mother Cancer Father Heart problem Kidney problem Daughter No problems noted. Daughter No problems noted. Daughter No problems noted. Social History (Updated 01/25/24 @ 09:29 by Cinthya Lopez CMA) Alcohol intake: never Patient Tobacco Use Status: Never used Tobacco Behavioral Health Assessment Weight Management Therapy Therapy Notes Details Subjective: The patient reports having communicated with the program nurse and now has an established meal plan. However, he shared several barriers that have prevented him from following the plan and exercising as recommended. These barriers include stressors related to finances, family issues, and his ongoing divorce process. Objective: The patient presents for a follow-up visit via Telehealth. . During the session, agustin utilized Cognitive Behavioral Therapy (CBT) techniques, including cognitive restructuring and reframing, to address negative self-talk. We also explored how he perceives things within his control versus outside of his control, with a focus on taking accountability for his decisions and actions. The session included discussions on habit formation and identifying ways to establish sustainable routines. Additionally, we reflected on dichotomous thinking patterns and worked on strategies to reframe these negative thought patterns into more balanced, realistic perspectives. We also explored his emotional response to the external stressors in his life, emphasizing coping strategies that could support his progress with both the meal plan and exercise regimen. Assessment/Response: * Mental status: The patient presents as stressed and overwhelmed, but engaged in the therapeutic process. He is cognitively intact and open to exploring strategies to manage stress and improve adherence to the program. * Risk reported/identified: No immediate risks related to self-harm or harm to others were identified. The patient?s emotional distress appears manageable with ongoing support. Food/Weight/Diet Expectations of change The goal is to lose 10% of your weight before surgery, about 29lbs. Ultimate weight goal: 265lbs before surgery PT started the program at 294 Lbs, and his most recent weight as of 04/03/2024 was 297 Lbs, so he gained weight. weight as of 04/24/2024: 297Lbs. Weight as of 05/10/2024: 291Lbs PT is implementing the following: Current meal plan: Was given a meal plan but hasn't started. Also on Zepbound. Exercise plan: Has treadmill. Assessment & Plan Assessment & Plan (1) Adjustment disorder with anxiety: Code(s): F43.22 - Adjustment disorder with anxiety Plan The patient will follow up in one month for further evaluation and support. In the interim, he is encouraged to continue working on reframing negative self- talk and implementing the habit-building techniques discussed during the session . We will continue to monitor his progress with the meal plan and exercise regimen, while also addressing the external stressors impacting his ability to fully engage with the program. Next jacobo: 06/16/2024 at 12pm. Telehealth. Telehealth Telehealth Telehealth Platform: [employer] Location of provider rendering services: other Location of patient: address on file Patient Identification confirmed using: Name, : Yes Telehealth method: voice only Patient verbally consented to treatment: Yes Patient verbally consented to billing insurance company: Yes Patient informed of any privacy concerns related to visit: Yes Minutes spent on Phone/Video with Pt.: 55 Coding Level of Care Code Established Pt Tele Psytx >53 mins ([id number]) Patient Type Established Diagnoses Adjustment disorder with anxiety F43.22 Time Spent (min) 55
--- OUTSIDE RECORDS SUMMARY | 2024-05-16 14:40 | XMS_ITS | Continuity of Care Document ---
Author Organization [facility] Address [address] [place] [address] Phone Care Team Providers Care Acute Dialysis Nurse Name Role Phone Katina Darnell Unavailable Unavailable [...] Providers Copied on Encounter [facility], [address], [place], [id number] , tel:[phone] [employer] No Information 8 Mann Katina. [address] [place], [place], [id number], [place]. tel:[phone] OFFICE VISIT ESTAB PT 15 MIN [facility], [address], [place], [id number] , tel:[phone] [place] [employer] left LBP (chief complaint) Body mass index (BMI) 39.0-39.9, adultAcute low back pain, unspecified back pain laterality, with sciatica presence unspecified 8 Mann Katina. [address] [place], [place], [id number], [place]. tel:[phone] OFFICE VISIT ESTAB PT 15 MIN [facility], [address] [place], [place], [id number] , [place] tel:[phone] [facility] low back pain (chief complaint) Body mass index (BMI) 38.0-38.9, adultChronic low back pain with sciatica, sciatica laterality unspecified, unspecified back pain laterality 8 Mann Katina. [address] [place], [place], [id number], [place]. tel:[phone] [facility], [address], [id number] , [place] tel:[phone] [facility] Persons encountering health services in oth circumstances 8 Ironadilia Falcon. [address], [place], [id number], [place]. tel:[phone] OFFICE VISIT ESTAB PT 15 MIN [facility], [address] [place], [place], [id number] , [place] tel:[phone] [facility] back pain (chief complaint) Body mass index (BMI) 39.0-39.9, adultAcute low back pain, unspecified back pain laterality, with sciatica presence unspecified 8 Mann Katina. [address], [place], [id number], [place]. tel: [phone] OFFICE VISIT ESTAB PT 25 MIN [facility], [address] [place], [place], [id number] , [place] tel:+ [phone] [facility] establish care (chief complaint) depression (chief complaint) memory loss (chief complaint) Body mass index (BMI) 39.0-39.9, adultEncounter for screening for other disorderAcute low back pain, unspecified back pain laterality, with sciatica presence unspecifiedDysthy miaMemory loss 8 Mann Katina. [address], [place], [id number], [place]. tel:[phone] [facility], [address], [place], [place], [id number] , tel: [phone] [facility] No Information 8 Management Case. . Family History Family Member Type Diagnosis Age At Onset No Information Payers Payer name Insurance type Covered constitution party ID Yadira garland(s) [facility] Access CI [id number] Social History Type Description Quantity Date Captured [...] pain. says he is being seen in [place] & it is a long drive. Currently [...] are chronic. says he moved here from [place] about 5 mos ago. LBP has had this for 3 years. says he hurt it at his job. Also had sx & this did not help him. goes to [facility] . Taking advil & tylenol right now. [...] will be referred to alternate ortho in [place] as W/C case is in [place]. Revisit in 6 weeks. Related to Acute [...] today- wants to transfer his care/tx to [place] as it will be much more convenient. Will revisit in 1 month. Related to Acute low back pain, unspecified back pain laterality, with sciatica presence unspecified Dietary management e ducation, guidance, and counseling Related to Body mass index (BMI) 39.0-39.9, adult Giving encouragement to exercise Related to Body mass index (BMI) 39.0-39.9, adult Pt continues to f/u w/doctor in [place]- pt signing release for past records today. [...]
--- OUTSIDE RECORDS SUMMARY | 2024-05-16 14:40 | XMS_ITS | Data Portability ---
Author Organization [employer] Address [address] [place] [id number] Care Team Providers Care Drain Layer Name Role Phone HIM CCA OTHER Assessment Encounter Date Assessment Date Assessment LastModified by Organization Details LastModified Time 01/07/2024 01/07/2024 I provided real -time medical direction via phone for this encounter and was available for additional phone-based assistance as needed. I have reviewed and agree with the Assessment and Plan as documented by the Counseling Specialist. Patient given the opportunity to ask questions. Our service contacted for an assessment of: Hemoptysis and chest pain As per above, patient with a 3 to four-week history of hemoptysis and a more recent complaint of chest pain. Patient with frequent travel to [place]. Currently is homeless. He is awaiting for a property that he has to clear renters before moving in. He does have 3 children who are with him currently in the back of his car. The visit took place at a [facility]. The patient did not call for the visit and did not want quenching car operator to evaluate him. He states that approximately 3 weeks ago he was seen in urgent care and had a chest x-ray which was negative. He declines and denies being tested for TB. He states he has had no workup other than for a high cholesterol reading in the past month or so. Patient denies shortness of breath and dyspnea on exertion. Per quenching car operator on the scene, vital signs show [...] /min 99 % 99 % 20 /min 305316. 6 g 170.18 cm 98.3 [degF] 184 mm[Hg] 136 mm[Hg] Not Available [facility] - production 4 16:43:51 Social History None recorded. Functional Status None recorded. Mental Status None recorded. Family History Nothing Reported. Medical History No medical history recorded. Past Encounters Encounter ID Performer Location Encounter Start Date Encounter Closed Date Diagnosis/Indication Diagnosis SNOMED-CT Code Diagnosis ICD10 Code Diagnosis Note [id number] Dari Horn MD Main - [facility] [address] [place] [phone] 01/07/2024 16:42:20 01/07/2024 21:40:20 Hemoptysis 26191131 R04.2 Chest pain 53859762 R07. 9 Health Concerns Section Related Observation LastModified by Organization Detai ls LastModified Time None Recorded Concern Status LastModified by Organization Details LastModified Time None Recorded Advance Directives Directive None Recorded Payers Encounter Date Sequence Insurance Name Policy Number Policy Donaldson Covered Member ID Donaldson Member ID Guarantor Name 01/07/2024 1 [facility] - DOS ON OR AFTER 2022 - DUAL ELIGIBLE - RETIREMENT OPTIONS AND ONE CARE (MEDICARE REPLACEMENT/ADV ANTAGE - HMO) Elier Kelley [id number] Elier Kelley Notes Date Note Type Note [...] ................. ................. ................. ................. ................. ................. ..... Counseling Specialist Note From Cornelia Espinosa: [facility] for the bloody cough and chest pain. O/A met pt at a [employer] lot. Pt stated health insurance wanted him [...] normal. Pt lower extremities show no edema. [facility] consulted and the assessment was shared. Pt advised to be seen in the ER for a chest X-ray and TB test to rule out. Pt was agreeable but will go later. SC2 clears without incident. ................. ................. ................. ................. ................. ................. ................. ................. ..... [facility] Consulted: Dari Horn ................. ................. ................. ................. ................. ................. ................. ................. ..... Disposition: Bobby Horn MD [address] [facility],[address], [place], [id number], [employer] 01/07/2024 21:02:41
--- OUTSIDE RECORDS SUMMARY | 2024-05-16 14:40 | XMS_ITS | Clinical Summary ---
Author Organization [facility] Address [address] [place] [address] Care Team Providers Care Assistant Front End Manager Name Role Phone Unavailable Primary Care Provider [...] Adults 18 yrs or above (or HM Modifier)([facility]) 2006 Hepatitis C Virus Infection in Adolescents and Adults: Screening (or Modifier) ([facility]) 2006 [facility] Screening Reminder: Jeny rodriguez for all adults ([facility]) 2006 Tobacco Smoking Cessation: i n Adults excluding Women: Behavioral and Pharmacotherapy Interventions ([facility]) 2006 Flu Vaccination: Yearly for ages 18mos through 64 years (or Modifier)([facility]) 09/30/2023 COVID-19 Vaccine Screening: Initial Series and Booster Status ([facility]) ( - 2023- season) 2023 Lipid Screening: Every 5 yrs for Men aged 35+ (or HM Modifier) ([facility]) 2024 DTaP/Tdap/Td Vaccines ([facility]) (2 - Td or Tdap) 12/10/2024 12/10/2014 Zoster/Shingles Vaccine Seri es Screening: Adults aged 18+ yrs (or HM Modifiers)([facility]) (1 of 2) 2038 Pneumococcal Vaccination Scr eening: Pts 0-19 & 19-64 yrs of age ([facility]) Aged Out No longer eligible b ased on patient's age to complete this topic Medical Devices Not on file Insurance MEDICARE
== END 2024-05-16 13:00 | disposition home or self-care (01) ==
LOC: HO.HBST 12:24
PROVIDERS: PCP Internal Medicine; Visit Provider Counselor Mental Health
DX: F43.22 Adjustment disorder with anxiety (principal)
CPT/HCPCS: 90837

== ENCOUNTER 2024-06-13 12:12 | Outpatient (AMB) | payer OTHER, SELFPAY ==
--- NOTE | 2024-06-13 12:05 | A.OFFWM_ITS ---
Intake Intake Visit Reasons: VIDEO BH F/U Allergies No Known Allergies Allergy (Verified 02/11/24 13:02) [facility] Medical History (Updated 05/10/24 @ 17:11 by Reg Murcia MD) DJD (degenerative joint disease) Hypertension Morbid obesity Surgical History History of back surgery Family History (Updated 01/25/24 @ 09:29 by Cinthya Lopez CMA) Mother Cancer Father Heart problem Kidney problem Daughter No problems noted. Daughter No problems noted. Daughter No problems noted. Social History (Updated 01/25/24 @ 09:29 by Cinthya Lopez CMA) Alcohol intake: never Patient Tobacco Use Status: Never used Tobacco Behavioral Health Assessment Weight Management Therapy Therapy Notes Details Subjective: The patient reports experiencing ongoing personal challenges, including recent loss of electricity at home, which has significantly impacted his ability to follow his meal and exercise plan. He expressed difficulty maintaining structure and consistency, and shared various stressors contributing to his current struggles with adherence. Objective: Patient attended a follow-up session via Telehealth. * Applied ACT (Acceptance and Commitment Therapy) principles to help the patient identify values and increase psychological flexibility. * Used cognitive restructuring techniques to challenge negative and unrealistic self-talk. * Explored realistic thinking patterns and strategies for reframing his current struggles in the context of long-term goals. * Reviewed patient's weight-loss motivations and clarified expectations to support a shift in mindset. * Addressed emotional and behavioral barriers interfering with adherence to the pre-op plan. Assessment/Response: * Mental status: Stressed but coherent and engaged; good overall functioning. * Risk: No safety concerns identified. Patient appears to struggle with personal accountability and has difficulty accepting his role in current setbacks. Encouraged a more solution-focused rather than problem-focused approach. Insight remains limited at this time. Food/Weight/Diet Expectations of change The goal is to lose 10% of your weight before surgery, about 29lbs. Ultimate weight goal: 265lbs before surgery PT started the program at 294 Lbs, and his most recent weight as of 04/03/2024 was 297 Lbs, so he gained weight. weight as of 04/24/2024: 297Lbs. Weight as of 05/10/2024: 291Lbs Weight as of 06/12/2024: 292Lbs PT is implementing the following: Current meal plan: Was given a meal plan but hasn't started. Also on Zep[employer]. Exercise plan: Has treadmill. Assessment & Plan Assessment & Plan (1) Adjustment disorder with anxiety: Code(s): F43.22 - Adjustment disorder with anxiety Plan * Patient is not yet cleared for surgery due to current mindset and lack of consistent commitment to pre-operative behavior changes. * Continue to provide behavioral support, reinforce accountability, and address barriers to adherence. * Monitor for improved engagement, insight, and readiness. * Reassess in 1 month to determine progress toward surgical readiness. Next jacobo: 07/11/2024 at 12, Telehealth Telehealth Telehealth Telehealth Platform: i-drive Location of provider rendering services: other Location of patient: address on file Patient Identification confirmed using: Name, : Yes Telehealth method: voice only Patient verbally consented to treatment: Yes Patient verbally consented to billing insurance company: Yes Patient informed of any privacy concerns related to visit: Yes Minutes spent on Phone/Video with Pt.: 55 Coding Level of Care Code Established Pt Tele Psytx >53 mins (08941) Patient Type Established Diagnoses Adjustment disorder with anxiety F43.22 Time Spent (min) 55
--- OUTSIDE RECORDS SUMMARY | 2024-06-13 14:58 | XMS_ITS | Clinical Summary ---
Author Organization [facility] [employer] [facility] [employer] Address [address] [place] [address] Care Team Providers Care Sleeve Maker Name Role Phone Unavailable Primary Care Provider [...] Adults 18 yrs or above (or HM Modifier)([facility]) 2006 Hepatitis C Virus Infection in Adolescents and Adults: Screening (or Modifier) ([facility]) 2006 [facility] Screening Reminder: Jeny rodriguez for all adults ([facility]) 2006 Tobacco Smoking Cessation: i n Adults excluding Women: Behavioral and Pharmacotherapy Interventions ([facility]) 2006 Flu Vaccination: Yearly for ages 18mos through 64 years (or Modifier)([facility]) 09/30/2023 COVID-19 Vaccine Screening: Initial Series and Booster Status ([facility]) ( - 2023- season) 2023 Lipid Screening: Every 5 yrs for Men aged 35+ (or HM Modifier) ([facility]) 2024 DTaP/Tdap/Td Vaccines ([facility]) (2 - Td or Tdap) 12/10/2024 12/10/2014 Zoster/Shingles Vaccine Seri es Screening: Adults aged 18+ yrs (or HM Modifiers)([facility]) (1 of 2) 2038 Pneumococcal Vaccination Scr eening: Pts 0-19 & 19-49 yrs of age ([facility]) Aged Out No longer eligible b ased on patient's age to complete this topic Medical Devices Not on file Insurance MEDICARE
--- OUTSIDE RECORDS SUMMARY | 2024-06-13 14:58 | XMS_ITS | Data Portability ---
Author Organization [employer] Address [address] [place] [phone] Care Team Providers Care Yarding And Folding Machine Operator Name Role Phone HIM CCA OTHER Assessment Encounter Date Assessment Date Assessment LastModified by Organization Details LastModified Time 01/07/2024 01/07/2024 I provided real -time medical direction via phone for this encounter and was available for additional phone-based assistance as needed. I have reviewed and agree with the Assessment and Plan as documented by the Syrup Mixer Assistant. Patient given the opportunity to ask questions. Our service contacted for an assessment of: Hemoptysis and chest pain As per above, patient with a 3 to four-week history of hemoptysis and a more recent complaint of chest pain. Patient with frequent travel to [place]. Currently is homeless. He is awaiting for a property that he has to clear renters before moving in. He does have 3 children who are with him currently in the back of his car. The visit took place at a [facility]. The patient did not call for the visit and did not want load out supervisor to evaluate him. He states that approximately 3 weeks ago he was seen in urgent care and had a chest x-ray which was negative. He declines and denies being tested for TB. He states he has had no workup other than for a high cholesterol reading in the past month or so. Patient denies shortness of breath and dyspnea on exertion. Per load out supervisor on the scene, vital signs show hypertension [...] /min 99 % 99 % 20 /min 025897. 6 g 170.18 cm 98.3 [degF] 184 mm[Hg] 136 mm[Hg] Not Available [facility] - production 4 16:43:51 Social History None recorded. Functional Status None recorded. Mental Status None recorded. Family History Nothing Reported. Medical History No medical history recorded. Past Encounters Encounter ID Performer Location Encounter Start Date Encounter Closed Date Diagnosis/Indication Diagnosis SNOMED-CT Code Diagnosis ICD10 Code Diagnosis Note [id number] Dari Horn MD Main - [facility] [address] [place] [phone] 01/07/2024 16:42:20 01/07/2024 21:40:20 Hemoptysis 51088419 R04.2 Chest pain 64269137 R07. 9 Health Concerns Section Related Observation LastModified by Organization Detai ls LastModified Time None Recorded Concern Status LastModified by Organization Details LastModified Time None Recorded Advance Directives Directive None Recorded Payers Encounter Date Sequence Insurance Name Policy Number Policy Donaldson Covered Member ID Donaldson Member ID Guarantor Name 01/07/2024 1 [facility] - DOS ON OR AFTER 2022 - DUAL ELIGIBLE - [facility] OPTIONS AND ONE CARE (MEDICARE REPLACEMENT/ADV ANTAGE - HMO) Elier Kelley [id number] Elier Kelley Notes Date Note Type Note [...] ................. ................. ................. ................. ................. ................. ..... Syrup Mixer Assistant Note From Cornelia Espinosa: [facility] for the bloody cough and chest pain. O/A met pt at a [employer] lot. Pt stated health insurance wanted him [...] normal. Pt lower extremities show no edema. [facility] consulted and the assessment was shared. Pt advised to be seen in the ER for a chest X-ray and TB test to rule out. Pt was agreeable but will go later. SC2 clears without incident. ................. ................. ................. ................. ................. ................. ................. ................. ..... [facility] Consulted: Dari Horn ................. ................. ................. ................. ................. ................. ................. ................. ..... Disposition: Bobby Horn MD [address] [facility],[address], [place], [address], [employer] 01/07/2024 21:02:41
--- OUTSIDE RECORDS SUMMARY | 2024-06-13 14:58 | XMS_ITS | Continuity of Care Document ---
Author Organization [facility] Address [address] [place] [address] Phone Care Team Providers Care Bench Precision Assembler Name Role Phone Katina Darnell Unavailable Unavailable [...] Providers Copied on Encounter [facility], [address], [place], [id number] , tel:[phone] [facility] [facility] No Information [address], [place], [id number], [place]. tel:[phone] OFFICE VISIT ESTAB PT 15 MIN [facility], [address], [place], [id number] , tel:[phone] [place] left LBP (chief complaint) Body mass index (BMI) 39.0-39.9, adultAcute low back pain, unspecified back pain laterality, with sciatica presence unspecified [address], [place], [id number], [place]. tel:[phone] OFFICE VISIT ESTAB PT 15 MIN [facility], [address] [place], [place], [id number] , [place] tel:[phone] [facility] low back pain (chief complaint) Body mass index (BMI) 38.0-38.9, adultChronic low back pain with sciatica, sciatica laterality unspecified, unspecified back pain laterality [address], [place], [id number], [place]. tel:[phone] [facility], [address], [id number] , [place] tel:[phone] [facility] Persons encountering health services in oth circumstances [address], [place], [id number], [place]. tel:[phone] OFFICE VISIT ESTAB PT 15 MIN [facility], [address] [place], [place], [id number] , [place] tel:[phone] [facility] back pain (chief complaint) Body mass index (BMI) 39.0-39.9, adultAcute low back pain, unspecified back pain laterality, with sciatica presence unspecified [address], [place], [id number], [place]. tel:[phone] OFFICE VISIT ESTAB PT 25 MIN [facility], [address] [place], [place], [id number] , [place] tel:[phone] [facility] establish care (chief complaint) depression (chief complaint) memory loss (chief complaint) Body mass index (BMI) 39.0-39.9, adultEncounter for screening for other disorderAcute low back pain, unspecified back pain laterality, with sciatica presence unspecifiedDysthy miaMemory loss [address], [place], [id number], [place]. tel:[phone] [facility], [address], [place], [place], [id number] , tel: [phone] [facility] No Information 8 Management Case. . Family History Family Member Type Diagnosis Age At Onset No Information Payers Payer name Insurance type Covered constitution party ID Yadira garland(s) [facility] Access CI [id number] Social History Type Description Quantity Date Captured [...] pain. says he is being seen in [place] & it is a long drive. Currently [...] are chronic. says he moved here from [place] about 5 mos ago. LBP has had this for 3 years. says he hurt it at his job. Also had sx & this did not help him. goes to [facility] . Taking advil & tylenol right [...] will be referred to alternate ortho in [place] as W/C case is in [place]. Revisit in 6 weeks. Related to Acute [...] today- wants to transfer his care/tx to [place] as it will be much more convenient. Will revisit in 1 month. Related to Acute low back pain, unspecified back pain laterality, with sciatica presence unspecified Dietary management e ducation, guidance, and counseling Related to Body mass index (BMI) 39.0-39.9, adult Giving encouragement to exercise Related to Body mass index (BMI) 39.0-39.9, adult Pt continues to f/u w/doctor in [place]- pt signing release for past records today. [...]
== END 2024-06-13 13:34 | disposition home or self-care (01) ==
LOC: HO.HBST 12:12
PROVIDERS: PCP Internal Medicine; Visit Provider Counselor Mental Health
DX: F43.22 Adjustment disorder with anxiety (principal)
CPT/HCPCS: 90837

== ENCOUNTER → 2024-06-13 12:12 | Outpatient (BNVA) | payer OTHER, SELFPAY | PROVIDERS: PCP Internal Medicine; Visit Provider Counselor Mental Health ==

== ENCOUNTER 2024-07-11 12:15 | Outpatient (AMB) | payer OTHER, SELFPAY ==
--- NOTE | 2024-07-11 12:05 | MHC.WMTHER ---
Intake Intake Visit Reasons: VIDEO BH F/U Allergies No Known Allergies Allergy (Verified 02/11/24 13:02) [facility] Medical History (Updated 05/10/24 @ 17:11 by Reg Murcia MD) DJD (degenerative joint disease) Hypertension Morbid obesity Surgical History History of back surgery Family History (Updated 01/25/24 @ 09:29 by Cinthya Lopez CMA) Mother Cancer Father Heart problem Kidney problem Daughter No problems noted. Daughter No problems noted. Daughter No problems noted. Social History (Updated 01/25/24 @ 09:29 by Cinthya Lopez CMA) Alcohol intake: never Patient Tobacco Use Status: Never used Tobacco Behavioral Health Assessment Weight Management Therapy Therapy Notes Details Subjective: The patient reports independently modifying his prescribed meal plan, currently engaging in fasting throughout the day and consuming one meal in the evening. He shared that this adjustment is partly motivated by a desire to accelerate weight loss and partly rooted in spiritual practice. The patient expressed feelings of discouragement but remains hopeful about qualifying for surgery this summer. He noted that he texted Dr. Durbin two weeks ago but has not followed up since. He also shared that he is no longer working. Objective: The patient participated in a pre-operative follow-up session via Telehealth. CBT techniques were utilized to address cognitive distortions such as [id number]-xd-zmugyyp thinking, self-sabotaging behaviors, and unrealistic expectations related to weight loss. The session included exploration of the difference between motivation and discipline, and the patient?s active role in shaping current outcomes. Psychoeducation was provided on the importance of sustainable habits, especially in preparation for surgery. The provider acknowledged the patient?s spiritual reasons for fasting, while collaboratively discussing how to align spiritual practice with nutritional needs and program guidelines. Assessment/Response: Mental Status: Patient presented with frustration and discouragement, and demonstrated insight into self-sabotaging patterns. He was alert and oriented to person, place, and time. Functioning remains stable. Risk: No risk reported or observed. Food/Weight/Diet Expectations of change The patient?s pre-surgical weight loss goal is to lose 10% of his starting weight?approximately 29 lbs?with a target weight of 265 lbs prior to surgery. He began the program at 294 lbs. As of the most recent weigh-in on 07/11/2024, he weighed 280 lbs, indicating a total weight loss of 14 lbs since program initiation. Weight Progression: 04/03/2024: 297 lbs 04/24/2024: 297 lbs 05/10/2024: 291 lbs 06/12/2024: 292 lbs 07/11/2024: 280 lbs PT is implementing the following: Current meal plan: Was given a meal plan, but not using it. currently doing fasting. Exercise plan: Has a treadmill, been doing outdoor walks. Scale: yes. Communication with provider: not consistent. Assessment & Plan Assessment & Plan (1) Adjustment disorder with anxiety: Code(s): F43.22 - Adjustment disorder with anxiety Plan -The provider will update team on identified barriers and coordinate next steps. -Behavioral readiness for surgery will be reassessed at the next session based on feedback from surgeon. -The patient was encouraged to return to the prescribed meal plan while considering a balanced approach that respects both his health needs and spiritual practices. - F/up with in 2 weeks. Next jacobo: 07/27/24 at 12pm - Telehealth Telehealth Telehealth Telehealth Platform: [employer] Location of provider rendering services: other Location of patient: address on file Patient Identification confirmed using: Name, : Yes Telehealth method: voice only Patient verbally consented to treatment: Yes Patient verbally consented to billing insurance company: Yes Patient informed of any privacy concerns related to visit: Yes Minutes spent on Phone/Video with Pt.: 55 Coding Level of Care Code Established Pt Tele Psytx >53 mins (33241) Patient Type Established Diagnoses Adjustment disorder with anxiety F43.22 Time Spent (min) 55
--- OUTSIDE RECORDS SUMMARY | 2024-07-11 13:25 | XMS_ITS | Data Portability ---
Author Organization [facility] [facility] Address [address] [place] [id number] Care Team Providers Care Optical Effects Line Up Person Name Role Phone HIM [facility] OTHER Assessment Encounter Date Assessment Date Assessment LastModified by Organization Details LastModified Time 01/07/2024 01/07/2024 I provided real -time medical direction via phone for this encounter and was available for additional phone-based assistance as needed. I have reviewed and agree with the Assessment and Plan as documented by the Customer Operations Specialist. Patient given the opportunity to ask questions. Our service contacted for an assessment of: Hemoptysis and chest pain As per above, patient with a 3 to four-week history of hemoptysis and a more recent complaint of chest pain. Patient with frequent travel to [place]. Currently is homeless. He is awaiting for a property that he has to clear renters before moving in. He does have 3 children who are with him currently in the back of his car. The visit took place at a [facility]. The patient did not call for the visit and did not want airframe and powerplant mechanic to evaluate him. He states that approximately 3 weeks ago he was seen in urgent care and had a chest x-ray which was negative. He declines and denies being tested for TB. He states he has had no workup other than for a high cholesterol reading in the past month or so. Patient denies shortness of breath and dyspnea on exertion. Per airframe and powerplant mechanic on the scene, vital signs show hypertension [...] /min 99 % 99 % 20 /min 336988. 6 g 170.18 cm 98.3 [degF] 184 mm[Hg] 136 mm[Hg] Not Available [facility] - production 4 16:43:51 Social History None recorded. Functional Status None recorded. Mental Status None recorded. Family History Nothing Reported. Medical History No medical history recorded. Past Encounters Encounter ID Performer Location Encounter Start Date Encounter Closed Date Diagnosis/Indication Diagnosis SNOMED-CT Code Diagnosis ICD10 Code Diagnosis Note [id number] Dari Horn MD [facility] [address] [place] [phone] 01/07/2024 16:42:20 01/07/2024 21:40:20 Hemoptysis 91202484 R04.2 Chest pain 14378079 R07. 9 Health Concerns Section Related Observation LastModified by Organization Detai ls LastModified Time None Recorded Concern Status LastModified by Organization Details LastModified Time None Recorded Advance Directives Directive None Recorded Payers Insurance Date Sequence Insurance Name Policy Number Policy Donaldson Covered Member ID Donaldson Member ID Guarantor Name 01/07/2024 1 [facility] - DOS ON OR AFTER 2022 - DUAL ELIGIBLE - FDC OPTIONS AND ONE CARE (MEDICARE REPLACEMENT/ADV ANTAGE - HMO) Elier Kelley [id number] Elier Kelley Notes Date Note Type Note [...] ................. ................. ................. ................. ................. ................. ..... Customer Operations Specialist Note From Cornelia Espinosa: [facility] for the bloody cough and chest pain. O/A met pt at a [employer] [facility]. Pt stated health insurance wanted him [...] normal. Pt lower extremities show no edema. [facility] [place] and the assessment was shared. Pt advised to be seen in the ER for a chest X-ray and TB test to rule out. Pt was agreeable but will go later. SC2 clears without incident. ................. ................. ................. ................. ................. ................. ................. ................. ..... [facility] [place]: Dari Horn ................. ................. ................. ................. ................. ................. ................. ................. ..... Disposition: Bobby Horn MD [address] [facility],[address], [place], [address], [place] [facility] 01/07/2024 21:02:41
--- OUTSIDE RECORDS SUMMARY | 2024-07-11 13:25 | XMS_ITS | Continuity of Care Document ---
Author Organization [facility] Address [address] [place] [address] Phone Care Team Providers Care Chief Digital Officer Name Role Phone Katina Darnell Unavailable Unavailable [...] Providers Copied on Encounter [facility], [address], [place], [id number] , tel:[phone] [place] [facility] [employer] No Information [address]. [address] [place], [place], [id number], [place]. tel:[phone] OFFICE VISIT ESTAB PT 15 MIN [facility], [address], [place], [id number] , tel:[phone] [employer] left LBP (chief complaint) Body mass index (BMI) 39.0-39.9, adultAcute low back pain, unspecified back pain laterality, with sciatica presence unspecified [address]. [address] [place], [place], [id number], [place]. tel:[phone] OFFICE VISIT ESTAB PT 15 MIN [facility], [address] [place], [place], [id number] , [place] tel:[phone] [facility] low back pain (chief complaint) Body mass index (BMI) 38.0-38.9, adultChronic low back pain with sciatica, sciatica laterality unspecified, unspecified back pain laterality [address]. [address] [place], [place], [id number], [place]. tel:[phone] [facility], [address], [place], [id number] , [place] tel:[phone] [facility] Persons encountering health services in oth circumstances [address] Iron[address] Falcon. [address] [place], [place], [id number], [place]. tel:[phone] OFFICE VISIT ESTAB PT 15 MIN [facility], [address] [place], [place], [id number] , [place] tel:[phone] [facility] back pain (chief complaint) Body mass index (BMI) 39.0-39.9, adultAcute low back pain, unspecified back pain laterality, with sciatica presence unspecified [address], [place], [id number], [place]. tel:[phone] OFFICE VISIT ESTAB PT 25 MIN [facility], [address] [place], [place], [id number] , [place] tel:[phone] [facility] establish care (chief complaint) depression (chief complaint) memory loss (chief complaint) Body mass index (BMI) 39.0-39.9, adultEncounter for screening for other disorderAcute low back pain, unspecified back pain laterality, with sciatica presence unspecifiedDysthy miaMemory loss [address]. [address] [place], [place], [id number], [place]. tel:[phone] [facility], [address], [place], [place], [id number] , tel: [phone] [facility] No Information 8 Management Case. . Family History Family Member Type Diagnosis Age At Onset No Information Payers Payer name Insurance type Covered alliance party ID Yadira garland(s) [facility] Access CI [id number] Social History Type Description Quantity Date Captured [...] pain. says he is being seen in [place] & it is a long drive. Currently [...] are chronic. says he moved here from [place] about 5 mos ago. LBP has had this for 3 years. says he hurt it at his job. Also had sx & this did not help him. goes to [facility] . Taking advil & tylenol right [...] will be referred to alternate ortho in [place] as W/C case is in [place]. Revisit in 6 weeks. Related to Acute [...] adult Pt continues to f/u w/doctor in [place]- pt signing release for past records today. [...]
--- OUTSIDE RECORDS SUMMARY | 2024-07-11 13:25 | XMS_ITS | Clinical Summary ---
Author Organization [facility] [employer] Address [address] [place] [address] Care Team Providers Care Reconciliation Clerk Name Role Phone Unavailable Primary Care Provider [...] Adults 18 yrs or above (or HM Modifier)([facility]) 2006 Hepatitis C Virus Infection in Adolescents and Adults: Screening (or Modifier) ([facility]) 2006 [facility] Screening Reminder: Jeny rodriguez for all adults ([facility]) 2006 Tobacco Smoking Cessation: i n Adults excluding Women: Behavioral and Pharmacotherapy Interventions ([facility]) 2006 COVID-19 Vaccine Screening: Initial Series and Booster Status ([facility]) (2023- season) 2023 Lipid Screening: Every 5 yrs for Men aged 35+ (or HM Modifier) ([facility]) 2024 Flu Vaccination: Yearly for ages 18mos through 64 years (or Modifier)([facility]) 09/29/2024 DTaP/Tdap/Td Vaccines ([facility]) (2 - Td or Tdap) 12/10/2024 12/10/2014 Zoster/Shingles Vaccine Seri es Screening: Adults aged 18+ yrs (or HM Modifiers)([facility]) (1 of 2) 2038 Pneumococcal Vaccination Scr eening: Pts 0-19 & 19-49 yrs of age ([facility]) Aged Out No longer eligible b ased on patient's age to complete this topic Medical Devices Not on file Insurance MEDICARE
== END 2024-07-11 13:01 | disposition home or self-care (01) ==
LOC: HO.HBST 12:15
PROVIDERS: PCP Internal Medicine; Visit Provider Counselor Mental Health
DX: F43.22 Adjustment disorder with anxiety (principal)
CPT/HCPCS: 90837

== ENCOUNTER 2024-07-28 12:23 | Outpatient (AMB) | payer OTHER, SELFPAY ==
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
--- OUTSIDE RECORDS SUMMARY | 2024-07-28 12:53 | XMS_ITS | Continuity of Care Document ---
Author Organization [facility] Address [address] [place] [address] Phone Care Team Providers Care Core Assembly Supervisor Name Role Phone Katina Darnell Unavailable Unavailable [...] Location Reason(s) For Visit Diagnoses Date Provider [facility], [address] [facility] [place], [id number] , tel: [phone] [facility] No Information [address], [place], [id number], . tel:[phone] [facility], [address] [facility] [place], [id number] , tel:[phone] [facility] left LBP (chief complaint) Body mass index (BMI) 39.0-39.9, adultAcute low back pain, unspecified back pain laterality, with sciatica presence unspecified [address], [place], [id number], . tel:[phone] [facility], [address], [id number] , tel:+ [phone] [facility] low back pain (chief complaint) Body mass index (BMI) 38.0-38.9, adultChronic low back pain with sciatica, sciatica laterality unspecified, unspecified back pain laterality [address], [place], [id number], . tel: [phone] [facility], [address], [id number] , tel: [phone] [facility] Persons encountering health services in oth circumstances [address], [place], [id number], [place]. tel: [phone] [facility], [address], [id number] , tel: [phone] [facility] back pain (chief complaint) Body mass index (BMI) 39.0-39.9, adultAcute low back pain, unspecified back pain laterality, with sciatica presence unspecified [address], [place], [id number], [place]. tel: [phone] [facility], [address], [id number] , [place] tel: [phone] [facility] establish care (chief complaint) depression (chief complaint) memory loss (chief complaint) Body mass index (BMI) 39.0-39.9, adultEncounter for screening for other disorderAcute low back pain, unspecified back pain laterality, with sciatica presence unspecifiedDysthymiaMemory loss [address], [place], [id number], [place]. tel: [phone] [facility], [address], [id number] , tel: [phone] [facility] No Information Management Case. . Family History Family Member Type Diagnosis Age At Onset No Information Payers Payer name Insurance type Covered democrat ID Yadira garland(s) [facility] Access CI [id number] Social History Type Description Quantity Date Captured [...] education , guidance, and counseling completed Goal Influenza vaccine. Due on due Goal [...] pain. says he is being seen in [place] & it is a long drive. Currently [...] are chronic. says he moved here from [place] about 5 mos ago. LBP has had this for 3 years. says he hurt it at his job. Also had sx & this did not help him. goes [facility] . Taking advil & tylenol right now. [...] will be referred to alternate ortho in [place] as W/C case is in [place]. Revisit in 6 weeks. Related to Acute [...] today- wants to transfer his care/tx to [place] as it will be much more convenient. Will revisit in 1 month. Related to Acute low back pain, unspecified back pain laterality, with sciatica presence unspecified Dietary management e ducation, guidance, and counseling Related to Body mass index (BMI) 39.0-39.9, adult Giving encouragement to exercise Related to Body mass index (BMI) 39.0-39.9, adult Pt continues to f/u w/doctor in [place]- pt signing release for past records today. [...]
== END 2024-07-28 13:15 | disposition home or self-care (01) ==
PROVIDERS: PCP Internal Medicine; Visit Provider Counselor Mental Health
DX: F43.22 Adjustment disorder with anxiety (principal)
CPT/HCPCS: 90837

== ENCOUNTER → 2024-07-28 12:23 | Outpatient (BNVA) | payer OTHER, SELFPAY | PROVIDERS: PCP Internal Medicine; Visit Provider Counselor Mental Health ==

== ENCOUNTER 2024-08-01 13:51 | Day surgery (SDC) | payer OTHER, SELFPAY ==
--- OUTSIDE RECORDS SUMMARY | 2024-03-02 12:53 | XMS_ITS | Continuity of Care Document ---
Author Organization [facility] Address [address] [place] [address] Phone Care Team Providers Care Vp Organizational Development Name Role Phone Katina Darnell Unavailable Unavailable [...] Providers Copied on Encounter [facility], [address], [place], [id number] , tel:[phone] [place] [employer] No Information 8 Mann Katina. [address] [place], [place], [id number], [place]. tel:[phone] OFFICE VISIT ESTAB PT 15 MIN [facility], [address], [place], [id number] , tel:[phone] [employer] left LBP (chief complaint) Body mass index (BMI) 39.0-39.9, adultAcute low back pain, unspecified back pain laterality, with sciatica presence unspecified 8 Mann Katina. [address], [place], [id number], [place]. tel:[phone] OFFICE VISIT ESTAB PT 15 MIN [facility], [address] [place], [place], [id number] , [place] tel:+ [phone] [facility] low back pain (chief complaint) Body mass index (BMI) 38.0-38.9, adultChronic low back pain with sciatica, sciatica laterality unspecified, unspecified back pain laterality 8 Mann Katina. [address], [place], [id number], [place]. tel:[phone] [facility], [address], [address] , [place] tel:+ [phone] [facility] Persons encountering health services in oth circumstances 8 Ironadilia Falcon. [address], [place], [id number], [place]. tel: [phone] OFFICE VISIT ESTAB PT 15 MIN [facility], [address] [place], [place], [id number] , [place] tel:+ [phone] [facility] back pain (chief complaint) Body mass index (BMI) 39.0-39.9, adultAcute low back pain, unspecified back pain laterality, with sciatica presence unspecified 8 Mann Katina. [address], [place], [id number], [place]. tel:[phone] OFFICE VISIT ESTAB PT 25 MIN [facility], [address] [place], [place], [id number] , [place] tel:+ [phone] [facility] establish care (chief complaint) depression (chief complaint) memory loss (chief complaint) Body mass index (BMI) 39.0-39.9, adultEncounter for screening for other disorderAcute low back pain, unspecified back pain laterality, with sciatica presence unspecifiedDysthy miaMemory loss 8 Mann Katina. [address], [place], [id number], [place]. tel:[phone] [facility], [address], [place], [place], [id number] , tel: [phone] [facility] No Information 8 Management Case. . Family History Family Member Type Diagnosis Age At Onset No Information Payers Payer name Insurance type Covered constitution party ID Yadira garland(s) [facility] Access CI [id number] Social History Type Description Quantity Date Captured Comments Alcohol Use Details Unknown Caffeine Use Details Unknown Tobacco Use Status No Information Smoking Status No Information Sex Male Chief Complaint And Reason For Visit No Information Reason For Referral Reason For Referral No Information Plan Of Treatment Date Type Action Status Goal Influenza vaccine. Due on due Goal Td vaccine. Due on due Goal H&P. Due on due Goal HIV screen. Due on due Goal Tdap. Due on due Goal Depression screening. Due on due Goal Td vaccine. Due on due Goal HIV screen. Due on due Goal H&P. Due on due Goal Influenza vaccine. Due on due Goal Tdap. Due on due Goal Dietary management education , guidance, and counseling completed Goal H&P. Due on due Goal Td vaccine. Due on due Goal HIV screen. Due on due Goal Influenza vaccine. Due on due Goal Tdap. Due on due Goal Dietary management education , guidance, and counseling completed Goal H&P. Due on due Goal Influenza vaccine. Due on due Goal Tdap. Due on due Goal HIV screen. Due on due Goal Td vaccine. Due on due Goal Td vaccine. Due on due Goal Tdap. Due on due Goal Influenza vaccine. Due on due Goal H&P. Due on due Goal HIV screen. Due on due Goal Dietary management education , guidance, and counseling completed Goal Tdap. Due on due Goal H&P. Due on due Goal Influenza vaccine. Due on due Goal Td vaccine. Due on due Goal HIV screen. Due on due Goal Dietary management education [...] pain. says he is being seen in [place] & it is a long drive. Currently getting back injections which he thinks is helping. Affects movement sleep, lifestyle. back pain (comments) pain radiat es down Rt leg. depression There is no cont inuation of [...] are chronic. says he moved here from [place] about 5 mos ago. LBP has had this for 3 years. says he hurt it at his job. Also had sx & this did not help him. goes to [facility] . Taking advil & tylenol right [...] will be referred to alternate ortho in [place] as W/C case is in [place]. Revisit in 6 weeks. Related to Acute [...] today- wants to transfer his care/tx to [place] as it will be much more convenient. Will revisit in 1 month. Related to Acute low back pain, unspecified back pain laterality, with sciatica presence unspecified Dietary management e ducation, guidance, and counseling Related to Body mass index (BMI) 39.0-39.9, adult Giving encouragement to exercise Related to Body mass index (BMI) 39.0-39.9, adult Pt continues to f/u w/doctor in [place]- pt signing release for past records today. [...] adult Assessments Type Assessment Date No Information Patient Care Teams Name Effective Dates (start - stop) Status Members No Information
--- NOTE | 2024-03-27 14:30 | HO.ANESPROP2 ---
HPI - Anesthesia Eval Consult details Narrative: 33yo M for Upper Endoscopy Anesthesia Pre-Procedure Meds Is the patient on any of the following meds?: GLP1/DPP4 PMFSH Active Problems Active Problems: All Active Problems Abnormal EKG (Acute) Vitamin B12 deficiency (Acute) Vitamin D deficiency (Acute) DJD (degenerative joint disease) (Acute) Hypertension (Acute) Morbid obesity (Acute) Past Medical History Medical History (Updated 03/15/24 @ 20:02 by Reg Murcia MD) DJD (degenerative joint disease) Hypertension Morbid obesity Family History Family History (Updated 01/25/24 @ 09:29 by Cinthya Lopez CMA) Mother Cancer Father Heart problem Kidney problem Daughter No problems noted. Daughter No problems noted. Daughter No problems noted. Surgical History Surgical History History of back surgery Social History Social History (Updated 01/25/24 @ 09:29 by Cinthya Lopez CMA) Alcohol intake: never Patient Tobacco Use Status: Never used Tobacco Meds Allergies Allergy/AdvReac Type Severity Reaction Status Date / Time No Known Allergies Allergy Verified 02/11/24 13:02 Home Medications ?Medication ?Instructions ?Recorded ?Confirmed ?Last Taken ?Type lisinopril 2.5 mg tablet 2.5 mg PO DAILY 01/25/24 02/11/24 Unknown History naproxen 500 mg tablet 500 mg PO BID 01/25/24 02/11/24 Unknown History phentermine 37.5 mg capsule 37.5 mg PO QAM 01/25/24 02/11/24 Unknown History semaglutide (weight loss) 0.25 mg subcut 01/25/24 02/11/24 Unknown History mg/0.5 mL subcutaneous pen injector (Jeremygovy) Assessment and Plan Assessment Anesthesia Assessment: Chart Reviewed
--- NOTE | 2024-07-31 11:15 | HO.ANESPROP2 ---
HPI - Anesthesia Eval Consult details Narrative: 34yo M for Upper Endoscopy BMI 46 Anesthesia Pre-Procedure Meds Is the patient on any of the following meds?: GLP1/DPP4 PMFSH Active Problems Active Problems: All Active Problems Vitamin A deficiency (Acute) Equivocal stress test (Acute) Abnormal EKG (Acute) Vitamin B12 deficiency (Acute) Vitamin D deficiency (Acute) DJD (degenerative joint disease) (Acute) Hypertension (Acute) Morbid obesity (Acute) Past Medical History Medical History (Updated 05/10/24 @ 17:11 by Reg Murcia MD) DJD (degenerative joint disease) Hypertension Morbid obesity Family History Family History (Updated 01/25/24 @ 09:29 by Cinthya Lopez CMA) Mother Cancer Father Heart problem Kidney problem Daughter No problems noted. Daughter No problems noted. Daughter No problems noted. Surgical History Surgical History History of back surgery Social History Social History (Updated 01/25/24 @ 09:29 by Cinthya Lopez CMA) Alcohol intake: never Patient Tobacco Use Status: Never used Tobacco Meds Allergies Allergy/AdvReac Type Severity Reaction Status Date / Time No Known Allergies Allergy Verified 02/11/24 13:02 Home Medications ?Medication ?Instructions ?Recorded ?Confirmed ?Last Taken ?Type lisinopril 2.5 mg tablet 2.5 mg PO DAILY 01/25/24 02/11/24 Unknown History naproxen 500 mg tablet 500 mg PO BID 01/25/24 02/11/24 Unknown History phentermine 37.5 mg capsule 37.5 mg PO QAM 01/25/24 02/11/24 Unknown History semaglutide (weight loss) 0.25 mg subcut 01/25/24 02/11/24 Unknown History mg/0.5 mL subcutaneous pen injector ([place]) Assessment and Plan Assessment Anesthesia Assessment: Chart Reviewed
[2024-08-01 13:58] VITALS: BP 149/96; PULSE 79; RESP 16; TEMP 36.3; O2SAT 98; BMI 43.6
[2024-08-01] MEDS: Lactated Ringers 1,000 ML 80 ML IVCONT (14:04)
--- NOTE | 2024-08-01 14:56 | MHC.SHP ---
Pre-Procedural Eval Section A - 24 Hr Update-Section A only Date of Service: 08/01/24 The patient is an INPATIENT: No The patient has been examined within 24 hours of the surgical procedure. The History & Physical has been completed within 30 days and I have reviewed it.: Yes Section B - Complete if H&P > 30 days Chief Complaint: Morbid (severe) obesity due to excess calories Relevant Family History (Specify if Yes): No Relevant Social History: None Present Medications: None Medical History: No relevant PMH History of Previous Operations: No relevant previous surgery Allergies: Allergies Allergy/AdvReac Type Severity Reaction Status Date / Time No Known Allergies Allergy Verified 02/11/24 13:02 Review of Systems Sugical H&P ROS: Negative: Constitution, Cardiovascular, Respiratory, Neurological, Psychiatric, Hem-Onc, Allergic/Immunologic, Gastrointestinal, Genitourinary, Musculoskeletal, Integumentary, Endocrine and Eyes/Ears/Nose/Throat Exam Surgical H&P Exam: Normal: HEENT, Normal: Heart, Normal: Lungs, Normal: Extremities, Normal: Abdomen, Normal: Skin and Normal: Neurological Plan Diagnosis/Plan: Unchanged (EGD to assess the stomach's anatomy. Risks of bleeding and perforation were discussed with the patient and he is in agreement with the plan.) I have reviewed the history and physical and performed a pertinent physical examination on my patient. No changes have occurred unless specified. Time Spent With Patient Time: Total time managing care of this patient today ____ minutes.
--- NOTE | 2024-08-01 15:00 | PM.OP ---
Brief Operative Note Date of Service: 08/01/24 Pre-op diagnosis: Morbid obesity Post-op diagnosis: same Procedure: PROCEDURE DATE: 08/01/2024 PREOPERATIVE DIAGNOSIS: GERD POSTOPERATIVE DIAGNOSIS: ?Same as above. Normal endoscopy PROCEDURE: Mvbwiahw-wqfyov-svcttfgkstdn with biopsies Surgeon: Sam Murcia M.D.. Ph.D. Sales Property Manager: None ? Anesthesia: IV sedation Estimated blood loss: ?Minimal FINDINGS AND PROCEDURE: ? OPERATIVE INDICATIONS: ?The patient is a 34 year old male known to me who is interested in bariatric surgery. Based on this information I recommended an upper endoscopy to evaluate the stomach's anatomy. Risks and complications of the surgery were discussed with the patient in advance particularly the possibility of perforation or bleeding that may require surgical intervention. The patient understood the risks and was in agreement with the plan. ? PROCEDURE: After informed consent was obtained by the patient, the patient was ?transferred to the Operating Room and was placed in the supine position.? After successful induction of IV sedation, a mouth block was inserted and the patient was placed in the left lateral decubitus position. An upper endoscopy was performed next, the oropharynx and esophagus appeared within the normal limits. There was no hiatal hernia. The z-line was smooth. Two biopsies were obtained from the distal esophagus 2-3 cm proximal to the GE junction and two additional biopsies from the GE junction. The stomach was entered and it appeared to be of normal size. There was no gastritis. There was no stricture or ulcer. A biopsy was obtained from the gastric fundus and the antrum. No significant bleeding was noted from any of the biopsy sites. The scope was then advanced into the duodenum which appeared to be normal as well. Retroflexion of the scope confirmed a normal endoscopy. At that point the duodenum ?and the stomach were decompressed and the scope was withdrawn from the patient's mouth. The patient extubated and was transferred in stable condition to the Recovery Room for further care. I was present and performed all steps of the procedure. There were no residents to assist with this case. Sy Murcia M.D., Ph.D. Surgeon: Reg Raftopoulos, MD Anesthesia: MAC Was an Sales Property Manager used for this Procedure?: No Estimated blood loss (mL): 0 IV fluids (mL): 400 Urine output (mL): 0 (No Patricio to record output) Pathology: other (1) antrum x1, 2) fundus x1, 3) GE junction x2, 4) distal esophagus x2) Condition: stable Disposition: PACU
[2024-08-01 15:20] VITALS: BP 131/79; PULSE 70; RESP 16; TEMP 36.4; O2SAT 99
[2024-08-01 15:35] VITALS: BP 144/87; PULSE 73; RESP 16; TEMP 36.1; O2SAT 94
== END 2024-08-01 15:46 | disposition home or self-care (01) ==
PROVIDERS: Visit Provider Surgery
PROC: 0DJ08ZZ Inspection of Upper Intestinal Tract, Via Natural or Artificial Opening Endoscopic (ICD-10-PCS; CPT 43235; principal; 2024-08-01 17:00)
DX: K21.9 Gastro-esophageal reflux disease without esophagitis (principal); E66.01 Morbid (severe) obesity due to excess calories; Z68.42 Body mass index [BMI] 45.0-49.9, adult; K29.50 Unspecified chronic gastritis without bleeding; I10 Essential (primary) hypertension; M19.90 Unspecified osteoarthritis, unspecified site; Z79.1 Long term (current) use of non-steroidal anti-inflammatories (NSAID); Z79.85 Long-term (current) use of injectable non-insulin antidiabetic drugs; Z79.899 Other long term (current) drug therapy; Z98.890 Other specified postprocedural states
CPT/HCPCS: 43239; 88305; 88313; 88342; J2704

== ENCOUNTER → 2024-08-01 13:51 | Outpatient (BNV) | payer OTHER, SELFPAY | PROVIDERS: Visit Provider Surgery | DX: K21.9 Gastro-esophageal reflux disease without esophagitis (principal) | CPT/HCPCS: 43239 ==

== ENCOUNTER 2024-08-11 10:10 | Outpatient (AMB) | payer OTHER, SELFPAY ==
--- NOTE | 2024-08-11 10:05 | MHC.WMTHER ---
Intake Intake Visit Reasons: VIDEO BH F/U Allergies No Known Allergies Allergy (Verified 02/11/24 13:02) [facility] Medical History (Updated 05/10/24 @ 17:11 by Reg Murcia MD) DJD (degenerative joint disease) Hypertension Morbid obesity Surgical History History of back surgery Family History (Updated 01/25/24 @ 09:29 by Cinthya Lopez CMA) Mother Cancer Father Heart problem Kidney problem Daughter No problems noted. Daughter No problems noted. Daughter No problems noted. Social History (Updated 01/25/24 @ 09:29 by Cinthya Lopez CMA) Are you a primary rn patient care to a significant other at home: No Do you presently have visiting nurse or other home services: No Alcohol intake: never Patient Tobacco Use Status: Never used Tobacco Second Hand Smoke Exposure: No Behavioral Health Assessment Weight Management Therapy Therapy Notes Details Subjective: The patient reports feeling sad as he closes the divorce chapter of his life, expressing nostalgia for the family life he once envisioned and sadness about his children growing up away from him. Despite these emotional challenges, he reports ongoing communication with Dr. Durbin 1?2 times per week and has been adherent to the new meal plan provided. His most recent weight is 265 lbs, indicating he has achieved the initial pre-surgery weight loss goal. The patient is currently awaiting insurance approval to schedule his weight-loss surgery. He had several questions regarding pre-operative preparation and what to expect post-operatively. Objective: The patient presents for a follow-up visit via Telehealth. He is alert, oriented, and engaged throughout the session. Interventions provided during the session included: Supportive counseling to process feelings of loss, nostalgia, and adjustment related to divorce and family changes Psychoeducation on the pre-operative and post-operative phases of bariatric surgery, including expectations, dietary guidelines, and lifestyle modifications Review of the current meal plan and reinforcement of adherence strategies Encouragement to utilize healthy coping skills for managing emotional distress, such as journaling, mindfulness, and seeking social support Collaborative discussion to address specific questions and concerns about the surgical process and recovery. Assessment/Response: Mental status: The patient appears sensitive and nostalgic but does not meet criteria for depression or anxiety. He is alert and oriented x3, with logical thought processes and good overall functioning. Risk reported/identified: none. Food/Weight/Diet Expectations of change Pt started the program on 02/10/2025 at 294Lbs. The patient?s pre-surgical weight loss goal is to lose 10% of his starting weight?approximately 29 lbs?with a target weight of 265 lbs before surgery. Weight Progression: 04/03/2024: 297 lbs 04/24/2024: 297 lbs 05/10/2024: 291 lbs 06/12/2024: 292 lbs 07/11/2024: 280 lbs 07/28/2024: 273 lbs 08/11/2024: 265 lbs PT is implementing the following: Current meal plan: Was given a new meal plan. 2 shakes, 2.5 bars and 1 meal per day. Using Premier shakes and FitCrunch bars. Exercise plan: 1 hr outdoor walks. Scale: yes. Communication with provider: yes, weekly. Assessment & Plan Assessment & Plan (1) Adjustment disorder with anxiety: Code(s): F43.22 - Adjustment disorder with anxiety Plan -Continue pre-operative behavioral health support to address emotional adjustment, reinforce adherence to the meal plan, and provide education on the surgical process -Encourage ongoing communication with the medical team and use of coping strategies for emotional well-being Next appointment scheduled for 08/30/2024 at 11:00 AM over the phone. Telehealth Telehealth Telehealth Platform: [facility] Location of provider rendering services: practice address Location of patient: address on file Patient Identification confirmed using: Name, : Yes Telehealth method: voice only Patient verbally consented to treatment: Yes Patient verbally consented to billing insurance company: Yes Patient informed of any privacy concerns related to visit: Yes Minutes spent on Phone/Video with Pt.: 60 Coding Level of Care Code Established Pt Tele Psytx >53 mins (08050) Patient Type Established Diagnoses Adjustment disorder with anxiety F43.22 Time Spent (min) 60
--- OUTSIDE RECORDS SUMMARY | 2024-08-11 11:01 | XMS_ITS | Continuity of Care Document ---
Author Organization [facility] Address [address] [place] [address] Phone Care Team Providers Care Lead Shop Operator Name Role Phone Katina Darnell Unavailable Unavailable [...] Location Reason(s) For Visit Diagnoses Date Provider [facility], [address] [place], [id number] , tel: [phone] [facility] No Information [address], [place], [id number], . tel:[phone] [facility], [address] [facility] [place] [place], [id number] , tel:+ [phone] [facility] left LBP (chief complaint) Body mass index (BMI) 39.0-39.9, adultAcute low back pain, unspecified back pain laterality, with sciatica presence unspecified [address], [place], [id number], . tel:[phone] [facility], [address] [place], [id number] , tel:+ [phone] [facility] low back pain (chief complaint) Body mass index (BMI) 38.0-38.9, adultChronic low back pain with sciatica, sciatica laterality unspecified, unspecified back pain laterality [address], [place], [id number], . tel: [phone] [facility], [address] [place], [place], [id number] , tel: [phone] [facility] Persons encountering health services in oth circumstances [address], [place], [id number], [place]. tel: [phone] [facility], [address] [place], [place], [id number] , tel: [phone] [facility] back pain (chief complaint) Body mass index (BMI) 39.0-39.9, adultAcute low back pain, unspecified back pain laterality, with sciatica presence unspecified [address], [place], [id number], [place]. tel: [phone] [facility], [address] [place], [id number] , [place] tel: [phone] [facility] establish care (chief complaint) depression (chief complaint) memory loss (chief complaint) Body mass index (BMI) 39.0-39.9, adultEncounter for screening for other disorderAcute low back pain, unspecified back pain laterality, with sciatica presence unspecifiedDysthymiaMemory loss [address], [place], [id number], [place]. tel: [phone] [facility], [address] [place], [id number] , tel: [phone] [facility] No Information Management Case. . Family History Family Member Type Diagnosis Age At Onset No Information Payers Payer name Insurance type Covered constitution party ID Yadira garland(s) [facility] Access CI [id number] Social History Type Description Quantity Date Captured Comments Alcohol Use Details Unknown Caffeine Use Details Unknown Tobacco Use Status No Information Smoking Status No Information Sex Male Chief Complaint And Reason For Visit No Information Plan Of Treatment Date Type Action Status Goal Depression screening. Due on due Goal Tdap. Due on due Goal HIV screen. Due on due Goal H&P. Due on due Goal Td [...] HIV screen. Due on 18 due Goal Dietary management [...] pain. says he is being seen in [place] & it is a long drive. Currently [...] this did not help him. goes to [facility] . Taking advil & tylenol [...] today- wants to transfer his care/tx to [place] as it will be much more convenient. Will revisit in 1 month. Related to Acute low back pain, unspecified back pain laterality, with sciatica presence unspecified Dietary management e ducation, guidance, and counseling Related to Body mass index (BMI) 39.0-39.9, adult Giving encouragement to exercise Related to Body mass index (BMI) 39.0-39.9, adult Pt continues to f/u w/doctor in [place]- pt signing release for past records today. [...]
== END 2024-08-11 11:32 | disposition home or self-care (01) ==
LOC: HO.HBST 10:10
PROVIDERS: Visit Provider Counselor Mental Health
DX: F43.22 Adjustment disorder with anxiety (principal)
CPT/HCPCS: 90837

== ENCOUNTER → 2024-10-17 08:40 | Outpatient (REF) | payer OTHER, SELFPAY ==
--- OUTSIDE RECORDS SUMMARY | 2017-06-25 11:27 | XMS_ITS | Continuity of Care Document ---
Author Organization [facility] Address [address] [place] [address] Phone Care Team Providers Care Lastex Thread Winder Name Role Phone Katina Darnell Unavailable Unavailable Medications Medication Instructions Dosage Effective Dates (start - stop) Status Comments meloxicam 7.5 mg tablet take 1 tablet by oral route every day 7.5 MG - Active fluoxetine 20 mg tablet take 1 tablet by oral route every day in the morning 20 MG - Active Advance Directives Directive Yes / No Effective Date File Name No Information Encounters Encounter Description Practice Location Reason(s) For Visit Diagnoses Date Provider [facility] [address] [facility] [place] [place] [id number] , tel: [phone] [facility] No Information [address], [place], [id number], . tel:[phone] [facility], [address] [facility] [place], [id number] , tel:[phone] [facility] left LBP (chief complaint) Body mass index (BMI) 39.0-39.9, adultAcute low back pain, unspecified back pain laterality, with sciatica presence unspecified [address], [place], [id number], . tel:[phone] [facility], [address] [place], [id number] , tel:+ [phone] [facility] low back pain (chief complaint) Body mass index (BMI) 38.0-38.9, adultChronic low back pain with sciatica, sciatica laterality unspecified, unspecified back pain laterality Mann Katina. [address], [place], [id number], . tel: [phone] [facility], [address] [place], [id number] , tel: [phone] [facility] Persons encountering health services in oth circumstances [address], [place], [id number], [place]. tel: [phone] [facility], [address] [place], [id number] , tel: [phone] [facility] back pain (chief complaint) Body mass index (BMI) 39.0-39.9, adultAcute low back pain, unspecified back pain laterality, with sciatica presence unspecified Mann Katina. [address], [place], [id number], [place]. tel: [phone] [facility], [address] [place], [address] , [place] tel: [phone] [facility] establish care (chief complaint) depression (chief complaint) memory loss (chief complaint) Body mass index (BMI) 39.0-39.9, adultEncounter for screening for other disorderAcute low back pain, unspecified back pain laterality, with sciatica presence unspecifiedDysthymiaMemory loss Mann Katina. [address], [place], [id number], [place]. tel: [phone] [facility], [address] [place], [address] , tel: [phone] [facility] No Information Management Case. . Family History Family Member Type Diagnosis Age At Onset No Information Payers Payer name Insurance type Covered green party ID Yadira garland(s) [facility] Access CI [id number] Social History Type Description Quantity Date Captured Comments Alcohol Use Details Unknown Caffeine Use Details Unknown Tobacco Use Status No Information Smoking Status No Information Sex Male Chief Complaint And Reason For Visit No Information Plan Of Treatment Date Type Action Status Goal H&P. Due on due Goal Td vaccine. Due on due Goal HIV screen. Due on due Goal Influenza vaccine. Due on due Goal Depression screening. Due on due Goal Tdap. Due on due Goal Tdap. Due on due Goal Td vaccine. Due on due Goal Influenza vaccine. Due on due Goal HIV screen. Due on due Goal H&P. Due on due Goal Dietary management education , guidance, and counseling completed Goal Tdap. Due on due Goal Influenza vaccine. Due on due Goal H&P. Due on due Goal HIV screen. Due on due Goal Td vaccine. Due on due Goal Dietary management education , guidance, and counseling completed Goal HIV screen. Due on due Goal H&P. Due on due Goal Influenza vaccine. Due on due Goal Tdap. Due on due Goal Td vaccine. Due on due Goal Td vaccine. Due on due Goal HIV screen. Due on due Goal Tdap. Due on due Goal H&P. Due on due Goal Influenza vaccine. Due on due Goal Dietary management education , guidance, and counseling completed Goal Tdap. Due on due Goal H&P. Due on due Goal Influenza vaccine. Due on due Goal HIV screen. Due on 18 due Goal Td vaccine. Due on 18 due Goal Dietary management education , guidance, and counseling completed Referral Ordered: Referrals: Orthopedic Surgery. Evaluate and treat ordered Referral Ordered: Referrals: Pain Medicine. Evaluate and treat ordered Referral Ordered: Referrals: Neurology. Evaluate and treat ordered History Of Present Illness Encounter Date Complaint History Of Prese nt Illness left LBP The symptoms are reported as being severe. The symptoms occur constantly. He states the symptoms are acute. Pt says he got up from the floor yesterday & had acute pain left lower back. low back pain The problem is s table. It occurs persistently. Location of pain is lower back. Additional information: Wants referral to ortho. also wants handicap placard application completed. back pain Duration: 2 Year s. The problem is worsening. It occurs persistently. Location of pain is lower back.The patient describes the pain as an ache and diffuse. Symptoms are aggravated by changing positions, daily activities and sitting. Additional information: Says he hurt his back @ work 04/10/14, has had surgery January 2016, says he is always in pain. says he is being seen in [place] & it is a long drive. Currently getting back injections which he thinks is helping. Affects movement sleep, lifestyle. back pain (comments) pain radiat es down Rt leg. establish care The symptoms are reported as being mild. The symptoms occur constantly. He states the symptoms are chronic. says he moved here from [place] about 5 mos ago. LBP has had this for 3 years. says he hurt it at his job. Also had sx & this did not help him. goes to [facility] . Taking advil & tylenol right now. depression There is no cont inuation of initial symptoms. The patient reports functioning as somewhat difficult. The patient presents with anxious/fearful thoughts, depressed mood, difficulty concentrating and diminished interest or pleasure but denies difficulty falling asleep, loss of appetite or thoughts of or suicide. Additional information: Says he lost his job a few years ago & has been depressed ever since. says he has a lot of financial debt, gained weight & started losing his hair. says he has tried counseling but it did not help. memory loss Severity level i s moderate. Pertinent negatives include agitation. Additional information: Pt reports memory loss which has been progressive X 1-2 years. Marianna has had depression at the time so he has not been clear when sx's started. 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 Pt advised he needs to do regular stretches, move. Massage for now, mobic 7.5mg bid. Will f/u w/ortho, pt will be referred to alternate ortho in [place] as W[place]C case is in [place]. Revisit in 6 weeks. Related to Acute low back pain, unspecified back pain laterality, with sciatica presence unspecified Dietary management e ducation, guidance, and counseling Related to Body mass index (BMI) 39.0-39.9, adult Giving encouragement to exercise Related to Body mass index (BMI) 39.0-39.9, adult Will refax releases for records again as none yet received. Will schedule PE. Related to Body mass index (BMI) 38.0-38.9, adult Will refer to ortho for eval. i advised pt i do not RX phentermine or narcotics. Related to Chronic low back pain with sciatica, sciatica laterality unspecified, unspecified back pain laterality Dietary management e ducation, guidance, and counseling Related to Body mass index (BMI) 38.0-38.9, adult Giving encouragement to exercise Related to Body mass index (BMI) 38.0-38.9, adult Pt will sign a relea se for all past recordss today- wants to transfer his care/tx to [place] as it will be much more convenient. Will revisit in 1 month. Related to Acute low back pain, unspecified back pain laterality, with sciatica presence unspecified Dietary management e ducation, guidance, and counseling Related to Body mass index (BMI) 39.0-39.9, adult Giving encouragement to exercise Related to Body mass index (BMI) 39.0-39.9, adult Pt continues to f/u w/doctor in [place]- pt signing release for past records today. Related to Acute low back pain, unspecified back pain laterality, with sciatica presence unspecified I will refer to neuro for evalua tion Related to Memory loss Try prozac 20mg jada y #30-1R. pt defres counseling. revisit in 4 weeks. Related to Dysthymia Mental health care education Rel ated to Encounter for screening for other disorder Dietary management e ducation, guidance, and counseling Related to Body mass index (BMI) 39.0-39.9, adult Giving encouragement to exercise Related to Body mass index (BMI) 39.0-39.9, adult Assessments Type Assessment Date No Information
--- NOTE | ~2024-10-17 | NM_ITS ---
Lexiscan Myocardial perfusion study Indication: Equivocal stress test evaluate for myocardial ischemia Technique: The patient was brought in for a Lexiscan perfusion study on 10/17/2024 and was injected 0.4 mg of Lexiscan intravenously. Within a minute of this injection 40 mCi of sestamibi was given intravenously. Images were obtained using the SPECT gamma camera interlaced with the gating device. Images were obtained in supine position. Resting perfusion study was performed on 10/20/2024. Patient was administered 40 mCi of sestamibi intravenously at rest. Images were then obtained in supine position. Images obtained without without CT attenuation. Total DLP 109 mGy-cm. Images were processed with the software and compared side to side in short axis, horizontal long axis and vertical long axis views. Findings: Both stress and rest studies were suboptimal due to intense subdiaphragmatic hepatic uptake in the main low interfering with cardiac uptake. There is also attenuation artifact due to hands down position. The stress perfusion study showed nonattenuated images show mildly reduced uptake in the distal lateral wall of the LV myocardium. There is severely reduced uptake in the basal inferior as well as mildly to moderately reduced uptake in the basal inferolateral wall of the LV myocardium. Attenuated corrected images show mildly reduced uptake in the distal anterior and apical wall of the LV myocardium.. The gated study shows normal LV systolic function with calculated LVEF of 56%. LV cavity is moderately dilated in size. The gated study shows normal systolic wall thickening and contraction of segments. Resting study shows nonattenuated images show moderately to severely reduced uptake in the basal inferior and basal inferolateral wall of the LV myocardium with improved uptake in the distal lateral wall. Attenuated corrected images are suboptimal due to diffusely reduced uptake noted in entire myocardium.. Gating at rest reveals normal systolic wall motion with ejection fraction at greater than 55%. The findings are consistent with equivocal for distal lateral wall ischemia. NM/NM cardiolite stress test Impression: 1. Myocardial perfusion imaging study shows equivocal for distal lateral wall ischemia 2. Gated LVEF is 56% 3. Transient ischemic dilatation not present but LV cavity is dilated Nondiagnostic changes on EKG. Electronically signed by: Pradeep Mobley MD 10/20/2024 04:14 PM EDT
--- NOTE | 2024-10-17 09:15 | CA_ITS ---
Acquisition Time: 2024-10-17 09:03:12 Total Exercise Time: 00:02:00 Test Indications: ABNORMAL EKG Medications: LISINOPRIL Protocol: LEXISCAN Max HR: 105 BPM 57% of Pred: 184 BPM Max BP: 120/80 mmHG Max Work Load: 1.0 METS Pharmacological stress test with Lexiscan while pt marches in chair, with reports of SOB and fatigue, without any arrythmias, with normotensive response to injection. Nondiagnostic EKG for ischemia. In recovery, pt slowly feeling back to baseline. Nuclear images pending. Test reviewed with Dr. Mobley. Referred By: Ravi Zambrano Electronically Signed By: Guero Abrams
--- OUTSIDE RECORDS SUMMARY | 2024-10-17 09:25 | XMS_ITS | Clinical Summary ---
Author Organization [facility] Address [address] [place] [address] Care Team Providers Care Nutter Up Name Role Phone Unavailable Primary Care Provider [...] 86 11/07/2020 11:26 AM EDT Temperature 36.7 C (98 F) 11/07/2020 11:26 AM EDT Respiratory Rate - - Oxygen Saturation 97% 11/07/2020 11:26 AM EDT Inhaled Oxygen Concentration - - Weight - - Height - - Body Mass Index - - Plan of Treatment Health Maintenance Due Date Last Done Comments Depression: Screening Annual ly using PHQ-2/9 in Adults 18 yrs or above (or HM Modifier)([facility]) 2006 Hepatitis C Virus Infection in Adolescents and Adults: Screening (or Modifier) ([facility]) 2006 [facility] Screening Reminder: Jeny rodriguez for all adults ([facility]) 2006 Tobacco Smoking Cessation: i n Adults excluding Women: Behavioral and Pharmacotherapy Interventions ([facility]) 2006 COVID-19 Vaccine Screening: Initial Series and Booster Status ([facility]) (2023- season) 2023 Flu Vaccination: Yearly for ages 18mos through 64 years (or Modifier)([facility]) 09/29/2024 DTaP/Tdap/Td Vaccines ([facility]) (2 - Td or Tdap) 12/10/2024 12/10/2014 Zoster/Shingles Vaccine Seri es Screening: Adults aged 18+ yrs (or HM Modifiers)([facility]) (1 of 2) 2038 Pneumococcal Vaccination Scr eening: Pts 0-19 & 19-49 yrs of age ([facility]) Aged Out No longer eligible b ased on patient's age to complete this topic Medical Devices Not on file Insurance MEDICARE
--- OUTSIDE RECORDS SUMMARY | 2024-10-17 09:25 | XMS_ITS | Clinical Summary ---
Author Organization [facility] Address [address] [place] [address] Care Team Providers Care Anesthesiologist Physician Name Role Phone Unavailable Primary Care Provider Unavailabl e Medications gabapentin (NEURONTIN) 300 MG capsule 1 capsule(s) by mouth three times a day 09/06/2018 Active amitriptyline (ELAVIL) 25 MG tablet 1 tablet(s) by mouth HS 30 tablet 6 09/06/2018 Active Social History Tobacco Use Types Packs/Day Years Used Date Smoking Tobacco: Never Assessed Sex and Gender Information Value Date Recorded Sex Assigned at Not on file Legal Sex Male 2:37 AM EST Gender Identity Not on file Sexual Orientation Not on file Last Filed Vital Signs Vital Sign Reading Time Taken Comments Blood Pressure - - Pulse - - Temperature - - Respiratory Rate - - Oxygen Saturation - - Inhaled Oxygen Concentration - - Weight 118 kg (260 lb) 01/24/2019 12:00 AM EST Legacy value: 260; Method: With Clothes; With Shoes Height - - Body Mass Index - - Plan of Treatment Not on file
== END ==
LOC: HO.CARD 08:40
PROVIDERS: Visit Provider Physician Assistant Surgical
DX: R94.31 Abnormal electrocardiogram [ECG] [EKG] (principal)
CPT/HCPCS: 78452; 93017; A9500; J0280; J2785

== ENCOUNTER → 2024-10-17 09:15 | Outpatient (BNV) | payer OTHER, SELFPAY | DX: R94.31 Abnormal electrocardiogram [ECG] [EKG] (principal) | CPT/HCPCS: 78452; 93016; 93018 ==